=== PATIENT | female | born 1980 | race Caucasian/White ===

== ENCOUNTER 2019-10-02 15:59 | Outpatient (CLI) | payer BC, SELFPAY ==
--- NOTE | ~2019-10-02 | XR_ITS ---
EXAMINATION: XR ankle RT min 3V EXAM DATE: 10/02/2019 16:20 INDICATION: Right ankle pain and swelling. Injury, initial encounter. TECHNIQUE: Right ankle frontal, lateral and oblique projections obtained and reviewed. There is no p rior study for comparison. FINDINGS: The right ankle mortise appears intact. There are no acute fractures or dislocations iden tified. There is no subcutaneous gas. There is soft tissue swelling over the ankle. There are no ra diopaque foreign bodies. IMPRESSION: 1. XR ankle RT min 3V exam without acute osseous findings. 2. Soft tissue swelling. Reviewed, dictated and finalized at location A.
== END 2019-10-02 16:00 | disposition home or self-care (01) ==
LOC: CHSIMG 16:01
PROVIDERS: PCP Nurse Practitioner Family; Visit Provider Nurse Practitioner Family
DX: M25.571 Pain in right ankle and joints of right foot (principal)
CPT/HCPCS: 73610

== ENCOUNTER 2020-04-21 13:36 | Outpatient (CLI) | payer BC, SELFPAY ==
[2020-04-21 14:20] LABS: Basophils Absolute Auto 0.06 K/mm3 (0.00-0.10); Basophils Percent Auto 0.4 % (0.0-1.0); Eosinophils Absolute Auto 0.08 K/mm3 (0.02-0.50); Eosinophils Percent Auto 0.5 % (1.0-6.0); Hematocrit 36.9 % (35.0-49.0); Hemoglobin 11.9 g/dL (12.0-15.0); Immature Granulocyte Absolute 0.09 K/mm3 (0.00-0.00); Immature Granulocyte Percent A 0.6 % (0.0-0.0); Lymphocytes Absolute Auto 3.67 K/mm3 (1.10-4.50); Lymphocytes Percent Auto 23.4 % (18.0-42.0); Mean Corpuscular HGB Conc 32.2 g/dL (32.0-36.0); Mean Corpuscular Hemoglobin 27.5 pg (27.0-31.0); Mean Corpuscular Volume 85.2 fL (78.0-102.0); Mean Platelet Volume 10.2 fl (9.2-11.8); Monocytes Absolute Auto 1.21 K/mm3 (0.10-0.90); Monocytes Percent Auto 7.7 % (2.0-11.0); Neutrophils Absolute Auto 10.6 K/mm3 (1.7-7.2); Neutrophils Percent Auto 67.4 % (50.0-70.0); Platelet Count Result 474 K/mm3 (150-420); Red Blood Count 4.33 M/mm3 (4.20-5.40); Red Cell Distribution Width 18.3 % (11.6-14.4); White Blood Count 15.7 K/mm3 (4.8-10.8)
== END 2020-04-21 13:37 | disposition home or self-care (01) ==
LOC: CHSLAB 13:41
PROVIDERS: PCP Nurse Practitioner Family
DX: Z13.0 Encounter for screening for diseases of the blood and blood-forming organs and certain disorders involving the immune mechanism (principal)
CPT/HCPCS: 36415; 85025

== ENCOUNTER 2021-12-12 08:32 | Emergency (ER) | payer BC, SELFPAY ==
--- NOTE | ~2021-12-12 | US_ITS ---
EXAMINATION: US pelvic complete DATE: 12/12/2021 13:09 INDICATION: Pelvic pain. Irregular bleeding. Comparison:No prior studies for comparison. TECHNIQUE: Multiple transabdominal sonographic images of the pelvis performed. FINDINGS: The uterus measures 15.8 x 10.8 x 8.7 cm. There is a complex heterogeneous mass of the uter us measuring 10.3 x 10.8 x 9.2 cm with internal vascularity. The endometrium is not visualized. The right ovary measures 2 x 2.1 x 1.7 cm and the left ovary is not definitely identified. There is no free fluid in the pelvis. There are no abnormal masses seen on either side. IMPRESSION: 1. Enlarged uterus containing a complex 10.8 cm heterogeneous vascular mass. This may represent a fib roid, although sarcomatous degeneration is not excluded. Recommend surgical consultation. Reviewed, dictated and finalized at location A. IMPRESSION: 1. Enlarged uterus containing a complex 10.8 cm heterogeneous vascular mass. Th is may represent a fibroid, although sarcomatous degeneration is not excluded. Recommend surgical consultation.
--- NOTE | ~2021-12-12 | CT_ITS ---
EXAMINATION: CT abdomen pelvis wo con DATE: 12/12/2021 11:33 INDICATION: Right lower quadrant pain for one week. Covid 19. TECHNIQUE: Computed tomography (CT) of the abdomen and pelvis was performed without intravenous contr ast. The dose-length product was 1088.05 mGy-cm. Automated exposure control and iterative reconstruct ion technique were employed. COMPARISON: None. FINDINGS: There is a 5 mm left lower lobe nodule. Heart size is normal. No significant pleural or per icardial effusion. There is a low-density mass in the left adrenal gland measuring 3.5 x 3.1 cm with density measurement of negative Hounsfield units which may represent adrenal adenoma or myolipoma. Th ere is cholecystectomy clips. The liver, spleen, pancreas, right adrenal gland and kidneys are unrema rkable. Nonobstructive bowel gas pattern. There is a fat-containing umbilical hernia. There are clips in the pelvis consistent with tubal ligation. There is a large mass in the pelvis, likely a large fi broid uterus. The The appendix is not positively visualized. There is no pericecal inflammatory green ge to suggest appendicitis. No free air or free fluid. No acute osseous abnormality. IMPRESSION: 1. Large homogeneous mass in the pelvis, likely enlarged fibroid uterus. Consider correlation with pe lvic ultrasound. 2: Left lower lobe nodule measuring 5 mm. Follow-up low dose CT chest in 12 months recommended. 3: Low-density left adrenal mass measuring 3.5 cm, likely benign adenoma or myolipoma. Reviewed, dictated and finalized at location A. IMPRESSION: 1. Large homogeneous mass in the pelvis, likely enlarged fibroid uterus. Consid er correlation with pelvic ultrasound. 2: Left lower lobe nodule measuring 5 mm. Follow-up low dose CT chest in 12 mo nths recommended. 3: Low-density left adrenal mass measuring 3.5 cm, likely benign adenoma or juan daniel lipoma.
[2021-12-12 09:50] VITALS: BP 143/84; PULSE 84; RESP 20; TEMP 36.6; O2SAT 99
[2021-12-12 10:33] LABS: Basophils Absolute Auto 0.04 K/mm3 (0.00-0.10); Basophils Percent Auto 0.5 % (0.0-1.0); Eosinophils Absolute Auto 0.04 K/mm3 (0.02-0.50); Eosinophils Percent Auto 0.5 % (1.0-6.0); Hematocrit 32.3 % (35.0-49.0); Immature Granulocyte Absolute 0.05 K/mm3 (0.00-0.00); Immature Granulocyte Percent A 0.6 % (0.0-0.0); Lymphocytes Absolute Auto 0.87 K/mm3 (1.10-4.50); Lymphocytes Percent Auto 10.7 % (18.0-42.0); Mean Corpuscular Hemoglobin 24.7 pg (27.0-31.0); Mean Corpuscular Volume 79.8 fL (78.0-102.0); Monocytes Absolute Auto 0.65 K/mm3 (0.10-0.90); Neutrophils Absolute Auto 6.5 K/mm3 (1.7-7.2); Neutrophils Percent Auto 79.7 % (50.0-70.0); Platelet Count Result 448 K/mm3 (150-420); Red Blood Count 4.05 M/mm3 (4.20-5.40); Red Cell Distribution Width 16.8 % (11.6-14.4); White Blood Count 8.1 K/mm3 (4.8-10.8)
[2021-12-12] MEDS: ONDANSETRON INJ 4 MG/2 ML VIAL IV PUSH (10:33)
[2021-12-12] MEDS: PANTOPRAZOLE SODIUM IV 40 MG VIAL IV PUSH (10:33)
[2021-12-12] MEDS: KETOROLAC 30 MG/ML VIAL (*BKC) IM (10:34)
[2021-12-12 10:35] LABS: Add Urine Microscopic? YES; Appearance Urine Slightly Cloudy (Clear); Bilirubin Urine Negative (Negative); Blood Urine 2+ (Negative); Color Urine Yellow (Yellow); Glucose Urine UA Negative (Negative); Ketones Urine Negative (Negative); Leukocyte Esterase Ur Negative (Negative); Nitrate Urine Negative (Negative); Protein Urine Negative (Negative); Specific Grav Ur >= 1.030 (1.010-1.020); Urobilinogen Urine 0.2 mg/dL (0.2-1.0); pH Urine 5.5 (5.0-8.0)
[2021-12-12] MEDS: SODIUM CHLORIDE 0.9% IV 500 ML 999 ML IV CONT (10:35)
[2021-12-12 10:44] LABS: Bacteria Urine 2+ /hpf; SPREG INTERNAL CONTROL Positive; Serum Qual hCG Negative; Squamous Epithelial Cell Urine Moderate /hpf (Few); WBC Urine None seen /hpf (0-3)
[2021-12-12 10:46] LABS: Alanine Aminotransferase 16 U/L (14-59); Albumin Level 3.1 g/dL (3.4-5.0); Alkaline Phosphatase 89 U/L (46-116); Anion Gap 8 mmol/L (8-16); Aspartate Amino Transferase 14 U/L (15-37); Bilirubin,Total 0.2 mg/dL (0.00-1.00); Blood Urea Nitrogen 8 mg/dL (7-18); Calcium 8.6 mg/dL (8.5-10.1); Carbon Dioxide 26 mmol/L (21-32); Chloride 101 mmol/L (98-108); Estimated Glomerular Filt Rate > 60; Glucose 90 mg/dL (70-99); Lipase 63 U/L (73-393); Osmolality Calculated 278 mOsm/kg (285-295); Sodium 135 mmol/L (136-145); Total Protein 6.9 g/dL (6.4-8.2)
[2021-12-12 11:05] LABS: SARS-CoV-2 RNA PCR Positive (Negative)
--- NOTE | 2021-12-12 11:22 | ED.ABDPAIN ---
HPI - Abdominal Pain General Chief Complaint: Abdominal Pain Stated Complaint: Female issuses /covid positive at home test Time Seen by Provider: 12/12/21 08:36 Source: patient and RN notes reviewed Mode of arrival: ambulatory Limitations: no limitations History of Present Illness MD elicited complaint: abdominal pain (RLQ abdominal pain x 1 week) Pertinent past history: none Onset (ago): week(s) (1) Pain Consistency: constant Location: RLQ Severity: mild Pain scale (0-10): 6 Quality: aching and dull Radiation: back Migration to: no migration Exacerbating factors: nothing Relieving factors: nothing Associated symptoms: nausea Related Data Patient : No Home Medications Medication Instructions Recorded Confirmed alprazolam 0.5 mg tablet 0.5 mg PO Q4-6H PRN Anxiety 04/27/19 12/12/21 amitriptyline 50 mg tablet 50 mg PO DAILY 04/27/19 12/12/21 fluoxetine 20 mg capsule 20 mg PO DAILY 04/27/19 12/12/21 naloxone 4 mg/actuation nasal 1 spray intranasal PRN PRN Opioid 04/27/19 12/12/21 spray (Narcan) Overdose propranolol 10 mg tablet 10 mg PO DAILY 04/27/19 12/12/21 quetiapine 300 mg tablet 300 mg PO HS 04/27/19 12/12/21 Allergies Allergy/AdvReac Type Severity Reaction Status Date / Time No Known Allergies Allergy Verified 04/27/19 18:18 Review of Systems Review of Systems: All systems reviewed & are unremarkable except as noted in HPI and below Constitutional: Constitutional: Reports no additional constitutional complaints Eyes: Eyes: Reports no additional eye complaints ENT: Reports system reviewed and no additional complaints, except as documented Cardiovascular: Cardiovascular: Reports no additional cardiovascular complaints Respiratory: Respiratory: Reports no additional respiratory complaints Gastrointestinal: Gastrointestinal: Reports no additional gastrointestinal complaints Genitourinary: Genitourinary: Reports no additional female genitourinary complaints Musculoskeletal: Musculoskeletal: Reports no additional musculoskeletal complaints Integumentary/Breasts: Skin/Breast: Reports system reviewed and no additional complaints, except as docu Neurologic: Reports system reviewed and no additional complaints, except as documented Psychiatric: Psychiatric: Reports no additional psychiatric complaints Endocrine: Endocrine: Reports no additional endocrine complaints Hematologic/Lymphatic: Hematologic/Lymphatic: Reports no additional hematologic/lymphatic complaints Allergic/Immunologic: Allergic/Immunologic: Reports no additional allergic/immunologic complaints PMFSH Past Medical History Medical History (Updated 12/12/21 @ 13:45 by Dawit Parker MD) Abdominal pain Anxiety Insomnia UTI (urinary tract infection) Exam Const: General: healthy appearing and no acute distress Nutritional Appearance: well nourished Orientation/consciousness: patient oriented x3 Limitations: no limitations HENMT: Head: normal to inspection Ears: external ears normal, TM's normal bilaterally and EAC's normal General nose exam: Normal external nose present and Normal nares present Face and sinus: normal facial exam and sinuses nontender Mouth: Yes Normal oral and palatal mucosa present and Yes moist mucous membranes Teeth and gingiva: dentition normal Throat: posterior oropharynx normal Eyes: Conjunctivae: conjunctivae normal Pupils: Equal, round and reactive pupils present EOM: EOMs intact bilaterally Neck: Neck: normal visual inspection, no lymphadenopathy and no meningeal signs Chest: Chest palpation & inspection: normal inspection of the chest Resp: Effort & Inspection: normal respiratory effort Auscultation: clear to auscultation bilaterally Cardio: Rate: regular rate Rhythm: regular rhythm GI: GI Palp: Yes Soft to palpation and Yes Tenderness to palpation present (GI) (minimally tender RLQ and suprapubic abdomen) : General: Yes bladder normal to palpation and Yes no CVA tendernes
[2021-12-12 12:18] VITALS: BP 132/72; PULSE 74; RESP 20; O2SAT 99
--- NOTE | 2021-12-12 12:35 | PC.NURSE ---
ultrasound staff in with pt.
[2021-12-12 13:09] VITALS: BP 136/76; PULSE 72; RESP 20; O2SAT 99
[2021-12-12] MEDS: traMADol HCL (*CRX) 50 MG TABLET PO (13:38)
[2021-12-12 13:55] VITALS: BP 135/85; PULSE 74; RESP 20; TEMP 36.6; O2SAT 97
== END 2021-12-12 14:00 | disposition home or self-care (01) ==
PROVIDERS: Emergency Provider Emergency Medicine; PCP Nurse Practitioner Family
DX: N39.0 Urinary tract infection, site not specified (principal); D25.9 Leiomyoma of uterus, unspecified; U07.1 COVID-19
CPT/HCPCS: 36415; 74176; 76856; 80053; 81001; 83690; 84703; 85025; 96361; 96365; 96372; 96375; 99284; A9270; C9113; C9803; J0696; J1885; J2405; J7040; U0003; U0005

== ENCOUNTER 2021-12-13 04:02 | Emergency (ER) | payer BC, SELFPAY ==
--- NOTE | ~2021-12-13 | CT_ITS ---
EXAMINATION: CT abdomen pelvis wo con DATE: 12/13/2021 05:38 INDICATION: Lower abdominal pain. Bloating. Uterine fibroid. TECHNIQUE: Computed tomography (CT) of the abdomen and pelvis was performed without intravenous contr ast. The dose-length product was 1254.65 mGy-cm. COMPARISON: 12/12/2021 FINDINGS: Mild atelectasis at the lung bases. Heart size is normal. No pericardial or pleural effusion. Cholecy stectomy clips the gallbladder fossa. Liver, spleen, pancreas and right adrenal gland are normal. 3.4 cm low density left adrenal mass most likely an adenoma although differential would include myelolip betzaida. Kidneys and ureters are normal with no urolithiasis, hydroureteronephrosis or perinephric/ureter al stranding. Appendix is not visualized and there are surgical clips at the cecum suggesting prior a ppendectomy with no adjacent inflammation presenting to suggest acute appendicitis. There are few sig moid diverticula without adjacent from 3 change to suggest diverticulitis. No bowel obstruction. Mass like enlargement of the uterine fundus consistent with a large fibroid. Likely tubal ligation clips a long the bilateral broad ligaments. Bilateral adnexa are otherwise unremarkable. Bladder is normal. N o free intraperitoneal gas or fluid. No pathologically enlarged abdominal or pelvic lymphadenopathy. Mild lower thoracic spondylosis. IMPRESSION: 1. No acute intra-abdominal/pelvic process. 2. Likely fibroid uterus. Reviewed, dictated and finalized at location A.
[2021-12-13 04:22] VITALS: BP 131/73; PULSE 81; RESP 17; TEMP 36.8; O2SAT 99
[2021-12-13] MEDS: MORPHINE SULFATE (*CRX) 4 MG/ML INJ IM (04:53)
[2021-12-13] MEDS: ONDANSETRON HCL ODT 4 MG TABLET PO (04:54)
[2021-12-13 05:22] LABS: Basophils Absolute Auto 0.04 K/mm3 (0.00-0.10); Basophils Percent Auto 0.4 % (0.0-1.0); Eosinophils Absolute Auto 0.04 K/mm3 (0.02-0.50); Eosinophils Percent Auto 0.4 % (1.0-6.0); Hematocrit 28.9 % (35.0-49.0); Hemoglobin 9.2 g/dL (12.0-15.0); Immature Granulocyte Absolute 0.05 K/mm3 (0.00-0.00); Immature Granulocyte Percent A 0.5 % (0.0-0.0); Lymphocytes Absolute Auto 0.63 K/mm3 (1.10-4.50); Lymphocytes Percent Auto 5.9 % (18.0-42.0); Mean Corpuscular HGB Conc 31.8 g/dL (32.0-36.0); Mean Corpuscular Hemoglobin 25.7 pg (27.0-31.0); Mean Corpuscular Volume 80.7 fL (78.0-102.0); Mean Platelet Volume 9.7 fl (9.2-11.8); Monocytes Absolute Auto 0.66 K/mm3 (0.10-0.90); Monocytes Percent Auto 6.2 % (2.0-11.0); Neutrophils Absolute Auto 9.2 K/mm3 (1.7-7.2); Neutrophils Percent Auto 86.6 % (50.0-70.0); Platelet Count Result 379 K/mm3 (150-420); Red Blood Count 3.58 M/mm3 (4.20-5.40); Red Cell Distribution Width 17.2 % (11.6-14.4); White Blood Count 10.6 K/mm3 (4.8-10.8)
[2021-12-13 05:42] LABS: Alanine Aminotransferase 13 U/L (14-59); Albumin Level 2.7 g/dL (3.4-5.0); Alkaline Phosphatase 82 U/L (46-116); Anion Gap 7 mmol/L (8-16); Aspartate Amino Transferase 15 U/L (15-37); Bilirubin,Total 0.1 mg/dL (0.00-1.00); Blood Urea Nitrogen 10 mg/dL (7-18); Calcium 8.4 mg/dL (8.5-10.1); Carbon Dioxide 25 mmol/L (21-32); Chloride 105 mmol/L (98-108); Estimated CRCL calculation 90 ml/min; Estimated Glomerular Filt Rate > 60; Glucose 116 mg/dL (70-99); Lipase 81 U/L (73-393); Osmolality Calculated 284 mOsm/kg (285-295); Potassium 4.1 mmol/L (3.5-5.1); Sodium 137 mmol/L (136-145); Total Protein 6.2 g/dL (6.4-8.2)
--- NOTE | 2021-12-13 07:45 | ED.ABDPAIN ---
HPI - Abdominal Pain General Chief Complaint: Abdominal Pain Stated Complaint: ABD PAIN Time Seen by Provider: 12/13/21 04:06 Source: patient and RN notes reviewed Mode of arrival: ambulatory Limitations: no limitations History of Present Illness MD elicited complaint: abdominal pain (recurrent worse than when seen in this ED 12-16 hrs ago. Fibroid uterus and UTI were diagnosed/treated.) Pertinent past history: past UTI Onset (ago): hour(s) (2) Pain Consistency: constant Location: RLQ and suprapubic Severity: moderate Pain scale (0-10): 8 Quality: cramping, aching and fullness Exacerbating factors: nothing Relieving factors: medication Related Data Home Medications Medication Instructions Recorded Confirmed alprazolam 0.5 mg tablet 0.5 mg PO Q4-6H PRN Anxiety 04/27/19 12/13/21 amitriptyline 50 mg tablet 50 mg PO DAILY 04/27/19 12/13/21 fluoxetine 20 mg capsule 20 mg PO DAILY 04/27/19 12/13/21 naloxone 4 mg/actuation nasal 1 spray intranasal PRN PRN Opioid 04/27/19 12/13/21 spray (Narcan) Overdose propranolol 10 mg tablet 10 mg PO DAILY 04/27/19 12/13/21 quetiapine 300 mg tablet 300 mg PO HS 04/27/19 12/13/21 Allergies Allergy/AdvReac Type Severity Reaction Status Date / Time No Known Allergies Allergy Verified 04/27/19 18:18 Review of Systems Review of Systems: All systems reviewed & are unremarkable except as noted in HPI and below Constitutional: Constitutional: Reports no additional constitutional complaints Eyes: Eyes: Reports no additional eye complaints ENT: Reports system reviewed and no additional complaints, except as documented Cardiovascular: Cardiovascular: Reports no additional cardiovascular complaints Respiratory: Respiratory: Reports no additional respiratory complaints Gastrointestinal: Gastrointestinal: Reports no additional gastrointestinal complaints Genitourinary: Genitourinary: Reports no additional female genitourinary complaints Musculoskeletal: Musculoskeletal: Reports no additional musculoskeletal complaints Integumentary/Breasts: Skin/Breast: Reports system reviewed and no additional complaints, except as docu Neurologic: Reports system reviewed and no additional complaints, except as documented Psychiatric: Psychiatric: Reports no additional psychiatric complaints Endocrine: Endocrine: Reports no additional endocrine complaints Hematologic/Lymphatic: Hematologic/Lymphatic: Reports no additional hematologic/lymphatic complaints Allergic/Immunologic: Allergic/Immunologic: Reports no additional allergic/immunologic complaints PMFSH Past Medical History Medical History Abdominal pain Anxiety Insomnia UTI (urinary tract infection) Exam Const: General: healthy appearing and no acute distress Nutritional Appearance: well nourished Orientation/consciousness: patient oriented x3 Limitations: no limitations HENMT: Head: normal to inspection Ears: external ears normal, TM's normal bilaterally and EAC's normal General nose exam: Normal external nose present and Normal nares present Face and sinus: normal facial exam and sinuses nontender Mouth: Yes Normal oral and palatal mucosa present and Yes moist mucous membranes Teeth and gingiva: dentition normal Throat: posterior oropharynx normal Eyes: Conjunctivae: conjunctivae normal Pupils: Equal, round and reactive pupils present EOM: EOMs intact bilaterally Neck: Neck: normal visual inspection, no lymphadenopathy and no meningeal signs Chest: Chest palpation & inspection: normal inspection of the chest Resp: Effort & Inspection: normal respiratory effort Auscultation: clear to auscultation bilaterally Cardio: Rate: regular rate Rhythm: regular rhythm GI: GI Palp: Yes Soft to palpation and No Tenderness to palpation present (GI) Auscultation: normal bowel sounds : General: Yes bladder normal to palpation and Yes no CVA tenderness Bimanual exam- vagina
[2021-12-13 09:12] VITALS: BP 130/77; PULSE 81; RESP 20; TEMP 36.3; O2SAT 98
== END 2021-12-13 09:14 | disposition home or self-care (01) ==
PROVIDERS: Emergency Provider Emergency Medicine; PCP Nurse Practitioner Family
DX: R10.9 Unspecified abdominal pain (principal); N39.0 Urinary tract infection, site not specified; D25.9 Leiomyoma of uterus, unspecified
CPT/HCPCS: 36415; 74176; 80053; 83690; 85025; 96372; 99284; A9270; J2270

== ENCOUNTER 2022-02-03 17:57 | Emergency (ER) | payer BC, SELFPAY ==
[2022-02-03 18:09] VITALS: BP 218/114; PULSE 93; RESP 16; TEMP 36.5; O2SAT 100
--- NOTE | 2022-02-03 18:28 | ED.DENTAL ---
HPI - Dental/Oral General Chief complaint: Dental/Oral Stated complaint: right back tooth pain Time Seen by Provider: 02/03/22 17:59 Source: patient and RN notes reviewed Mode of arrival: ambulatory Limitations: no limitations History of Present Illness Complaint: tooth pain Onset (ago): day(s) (2) Duration: constant Severity: mild Severity scale (1-10): 4 Relieving factors: nothing Exacerbating factors: chewing Context: history of dental caries Treatment prior to arrival: none Related Data Home Medications Medication Instructions Recorded Confirmed alprazolam 0.5 mg tablet 0.5 mg PO Q4-6H PRN Anxiety 04/27/19 02/03/22 amitriptyline 50 mg tablet 50 mg PO DAILY 04/27/19 02/03/22 fluoxetine 20 mg capsule 20 mg PO DAILY 04/27/19 02/03/22 naloxone 4 mg/actuation nasal 1 spray intranasal PRN PRN Opioid 04/27/19 02/03/22 spray (Narcan) Overdose propranolol 10 mg tablet 10 mg PO DAILY 04/27/19 02/03/22 quetiapine 300 mg tablet 300 mg PO HS 04/27/19 02/03/22 Allergies Allergy/AdvReac Type Severity Reaction Status Date / Time No Known Allergies Allergy Verified 02/03/22 18:18 Review of Systems Review of Systems: All systems reviewed & are unremarkable except as noted in HPI and below Constitutional: Constitutional: Reports no additional constitutional complaints Eyes: Eyes: Reports no additional eye complaints ENT: Reports system reviewed and no additional complaints, except as documented Comments: dental pain Cardiovascular: Cardiovascular: Reports no additional cardiovascular complaints Respiratory: Respiratory: Reports no additional respiratory complaints Gastrointestinal: Gastrointestinal: Reports no additional gastrointestinal complaints Genitourinary: Genitourinary: Reports no additional female genitourinary complaints Musculoskeletal: Musculoskeletal: Reports no additional musculoskeletal complaints Integumentary/Breasts: Skin/Breast: Reports system reviewed and no additional complaints, except as docu Neurologic: Reports system reviewed and no additional complaints, except as documented Psychiatric: Psychiatric: Reports no additional psychiatric complaints Endocrine: Endocrine: Reports no additional endocrine complaints Hematologic/Lymphatic: Hematologic/Lymphatic: Reports no additional hematologic/lymphatic complaints Allergic/Immunologic: Allergic/Immunologic: Reports no additional allergic/immunologic complaints PMFSH Past Medical History Medical History (Updated 02/13/22 @ 08:58 by Dawit Parker MD) Abdominal pain Anxiety Insomnia Toothache UTI (urinary tract infection) Exam Const: General: healthy appearing and no acute distress Nutritional Appearance: well nourished Orientation/consciousness: patient oriented x3 Limitations: no limitations HENMT: Head: normal to inspection Ears: external ears normal, TM's normal bilaterally and EAC's normal General nose exam: Normal external nose present and Normal nares present Face and sinus: normal facial exam and sinuses nontender Mouth: Yes Normal oral and palatal mucosa present and Yes moist mucous membranes Teeth and gingiva: abnormal tooth and associated gingiva (right upper molar minimally tender. scattered dental caries.) Throat: posterior oropharynx normal Eyes: Conjunctivae: conjunctivae normal Pupils: Equal, round and reactive pupils present EOM: EOMs intact bilaterally Neck: Neck: normal visual inspection, no lymphadenopathy and no meningeal signs Chest: Chest palpation & inspection: normal inspection of the chest Resp: Effort & Inspection: normal respiratory effort Auscultation: clear to auscultation bilaterally Cardio: Rate: regular rate Rhythm: regular rhythm GI: GI Palp: Yes Soft to palpation and No Tenderness to palpation present (GI) Auscultation: normal bowel sounds : General: Yes bladder normal to palpation and Yes no CVA tenderness Bimanual exam- vagina & uterus: bladder normal to palpation B
[2022-02-03] MEDS: KETOROLAC (*BKC) 60 MG/2 ML VIAL IM (18:37)
[2022-02-03] MEDS: cloNIDine HCL 0.2 MG TABLET PO (18:37)
[2022-02-03 18:44] VITALS: BP 203/103; PULSE 77; RESP 17; TEMP 36.5; O2SAT 96
== END 2022-02-03 18:46 | disposition home or self-care (01) ==
PROVIDERS: Emergency Provider Emergency Medicine; PCP Nurse Practitioner Family
DX: K04.7 Periapical abscess without sinus (principal); I10 Essential (primary) hypertension
CPT/HCPCS: 96372; 99283; A9270; J1885

== ENCOUNTER 2024-08-25 10:46 | Emergency (ER) | payer BC, SELFPAY ==
[2024-08-25] VITALS (7 sets, daily range): BP systolic 119–153; BP diastolic 70–77; PULSE 70–94; RESP 18; TEMP 36.2; O2SAT 94–96
--- NOTE | ~2024-08-25 | XR_ITS ---
Clinical Indication: Cough PA and lateral views of the chest: Comparison: 04/27/2019 Findings: Possible mild central congestive change, without evidence of focal consolidation or pleural effusion. Cardiomediastinal silhouette is within normal limits. Bones and soft tissues are unremark able. Impression: Possible mild central congestive change. Reviewed, dictated and finalized at location . Impression: Possible mild central congestive change.
--- NOTE | ~2024-08-25 | CT_ITS ---
Clinical Indication: Shortness of breath CT Scan of the Chest with Contrast: Technique: Contiguous sections were acquired throughout the chest after intravenous administration of 190 cc of Omnipaque 350. Dose reduction technique was used on this scan by utilizing automated expos ure control and iterative reconstruction technique. The dose-length product (DLP) was 1951.30 mGy-cm. Findings: There is bilateral hilar and probable subcarinal lymphadenopathy. No axillary lymphadenopathy. No def inite large filling defect seen in central pulmonary arteries to suggest central pulmonary embolus, b ut evaluation for pulmonary embolus is suboptimal due to timing of the contrast bolus.. There is no e vidence of aortic dissection or aneurysm. There is no evidence of pleural or pericardial effusion. Probable areas of mild groundglass opacity scattered throughout the lungs, suggestive of mild pulmona ry edema or possibly bronchitis. 4 mm left lower lobe pulmonary nodule present (axial image 80). Images through the upper abdomen reveal no abnormalities. Impression: Limited evaluation for pulmonary embolus, but no large central pulmonary embolus seen. Extensive regional areas of groundglass opacity lungs. Correlate for mild pulmonary edema versus poss ibly bronchiolitis or atypical infection/hypersensitivity pneumonitis. Bilateral hilar and subcarinal lymphadenopathy. Correlate for reactive/inflammatory nodes, including possibility of sarcoid. Lymphoma the metastatic disease felt to be less likely, though not definitive ly excluded. Reviewed, dictated and finalized at [facility]. Impression: Limited evaluation for pulmonary embolus, but no large central pulmonary embolu s seen. Extensive regional areas of groundglass opacity lungs. Correlate for mild pulmo nary edema versus possibly bronchiolitis or atypical infection/hypersensitivity pneumonitis. Bilateral hilar and subcarinal lymphadenopathy. Correlate for reactive/inflamma tory nodes, including possibility of sarcoid. Lymphoma the metastatic disease f elt to be less likely, though not definitively excluded.
--- NOTE | 2024-08-25 10:56 | ED_ITS ---
HPI - SOB/Dyspnea General Chief Complaint: Shortness of Breath/Dyspnea Stated Complaint: shortness of breath Time Seen by Provider: 08/25/24 10:53 Source: patient Mode of arrival: ambulatory Limitations: no limitations History of Present Illness HPI Narrative: Patient is a 44-year-old female with some shortness of breath over the past week to week and a half. She has some discomfort when she takes a breath in the bilateral lower lung kapadia /upper abdomen. No definite abdominal pain. No nausea vomiting or diarrhea. A week ago she had a GI gastroenteritis. She has been having a fever of 101 at times in the evening. No syncope. No chest pain. MD elicited complaint: shortness of breath Pertinent past history: COPD ( Tobacco 1 pack per day) Onset (ago): week(s) ( 1-2) Context: recent illness and other ( patient has progressively worsening shortness of breath and some lower lung field pain with breathing over the past 1-2 weeks with fever) Timing: constant and progressively worsening Severity: moderate Exacerbating factors: exertion Relieving factors: rest Known history of: COPD Associated symptoms: sputum production ( scant and normal color without blood) Treatment prior to arrival: none Related Data Home oxygen amount: none Home Medications ?Medication ?Instructions ?Recorded ?Confirmed ?Last Taken ?Type alprazolam 0.5 mg tablet 0.5 mg PO Q4-6H PRN Anxiety 04/27/19 02/03/22 Unknown History amitriptyline 50 mg tablet 50 mg PO DAILY 04/27/19 02/03/22 Unknown History fluoxetine 20 mg capsule 20 mg PO DAILY 04/27/19 02/03/22 Unknown History naloxone 4 mg/actuation nasal 1 spray intranasal PRN PRN Opioid 04/27/19 02/03/22 Unknown History spray (Narcan) Overdose propranolol 10 mg tablet 10 mg PO DAILY 04/27/19 02/03/22 Unknown History quetiapine 300 mg tablet 300 mg PO HS 04/27/19 02/03/22 Unknown History Allergies Allergy/AdvReac Type Severity Reaction Status Date / Time No Known Allergies Allergy Verified 02/03/22 18:18 Review of Systems 2 Review of Systems: All systems reviewed & are unremarkable except as noted in HPI and below Constitutional: Constitutional: Reports no additional constitutional complaints Eyes: Eyes: Reports no additional eye complaints ENT: Reports system reviewed and no additional complaints, except as documented Cardiovascular: Cardiovascular: Reports no additional cardiovascular complaints Respiratory: Respiratory: Reports no additional respiratory complaints Gastrointestinal: Gastrointestinal: Reports no additional gastrointestinal complaints Genitourinary: Genitourinary: Reports no additional female genitourinary complaints Musculoskeletal: Musculoskeletal: Reports no additional musculoskeletal complaints Integumentary/Breasts: Skin/Breast: Reports system reviewed and no additional complaints, except as docu Neurologic: Reports system reviewed and no additional complaints, except as documented Psychiatric: Psychiatric: Reports no additional psychiatric complaints Endocrine: Endocrine: Reports no additional endocrine complaints Hematologic/Lymphatic: Hematologic/Lymphatic: Reports no additional hematologic/lymphatic complaints Allergic/Immunologic: Allergic/Immunologic: Reports no additional allergic/immunologic complaints PMFSH Past Medical History Medical History Toothache UTI (urinary tract infection) Abdominal pain Anxiety Insomnia Exam 2 Const: General: healthy appearing Nutritional Appearance: well nourished Orientation/consciousness: patient oriented x3 HENMT: Head: normal to inspection Ears: external ears normal F karyn/Nose/Sinus: Normal external nose present Eyes: Conjunctivae: conjunctivae normal Pupils: Equal, round and reactive pupils present EOM: EOMs intact bilaterally Neck: Neck: normal visual inspection Chest: Chest palpation & inspection: normal inspection of the chest Resp: Effort & Inspection: normal respiratory effort and not labored A uscultation: clear to auscultation bilaterally, no crackles and rhonchi ( faintly in the bases) Cardio: Rate: regular rate Rhythm: regular rhythm Heart sounds: no murmurs GI: Inspection: non-distended GI Palp: Yes Soft to palpation, No Tenderness to palpation present (GI), No Guarding due to palpation present (GI), No Rigid due to palpation, No Hernia present, No Palpable mass present and No Rebound tenderness present Auscultation: normal bowel sounds : General: Yes bladder normal to palpation Back/Spine/Pelvis: Back: no CVA tenderness Skin: General skin exam: normal color Rashes: no rashes Wounds: no wounds Neuro: General: patient oriented x3 Cranial nerves: Yes Nystagmus not present Speech: normal speech Gait exam (Neuro): Normal gait present Extrem: General: normal to inspection Psych: Mental Status: mental status grossly normal Affect: normal affect Attitude: cooperative Course Vital Signs Vital signs: Vital Signs Temperature 36.2 C L 08/25/24 10:46 Pulse Rate 94 08/25/24 10:46 Respiratory Rate 18 08/25/24 10:46 Blood Pressure 153/77 H 08/25/24 10:46 Pulse Oximetry 94 08/25/24 10:46 Oxygen Delivery Room Air 08/25/24 10:46 Temperature 36.2 C L 08/25/24 10:46 Pulse Rate 70 08/25/24 12:15 Respiratory Rate 18 08/25/24 10:46 Blood Pressure 128/70 08/25/24 12:31 Pulse Oximetry 95 08/25/24 12:31 Oxygen Delivery Room Air 08/25/24 11:01 MDM - SOB/Dyspnea MDM Narrative Medical decision making narrative: patient is a 44-year-old female with some shortness of breath over the past 1-2 weeks. We will start with a chest x-ray and proceed to further workup if that is negative or significant. Lab Data Attestation: I reviewed the patient's lab results. 08/25/24 11:43 08/25/24 11:43 Labs: Lab Results 08/25/24 08/25/24 Range/Units 10:56 11:43 WBC 14.8 H (4.8-10.8) K/mm3 RBC 3.85 L (4.20-5.40) M/mm3 Hgb 11.1 L (12.0-15.0) g/dL Hct 35.0 (35.0-49.0) % MCV 90.9 (78.0-102.0) fL MCH 28.8 (27.0-31.0) pg MCHC 31.7 L (32-36) g/dL RDW 15.4 H (11.6-14.4) % Plt Count 413 (150-420) K/mm3 MPV 8.8 L (9.2-11.8) fl Immature Gran % (Auto) 0.5 H (0.0-0.0) % Neut % (Auto) 73.9 H (50.0-70.0) % Lymph % (Auto) 19.8 (18.0-42.0) % Callaway % (Auto) 4.9 (2.0-11.0) % Eos % (Auto) 0.5 L (1.0-6.0) % Baso % (Auto) 0.4 (0.0-1.0) % Lymph # (Auto) 2.94 (1.10-4.50) K/mm3 Callaway # (Auto) 0.72 (0.10-0.90) K/mm3 Eos # (Auto) 0.08 (0.02-0.50) K/mm3 Baso # (Auto) 0.06 (0.00-0.10) K/mm3 Abs Immat Gran (auto) 0.08 H (0.00-0.00) K/mm3 Absolute Neuts (auto) 10.94 H (1.70-7.20) K/mm3 Absolute Nucleated RBC 0.00 (0.00-0.00) K/mm3 Nucleated RBC % 0.0 (0-0.0) % PT 10.7 (9.50-12.1) Seconds INR 1.0 APTT 29.4 (23.9-30.70) Sec D-Dimer 0.79 H* (0.19-0.50) mg/L Sodium 142 (136-145) mmol/L Potassium 4.0 (3.5-5.1) mmol/L Chloride 105 (98-108) mmol/L Carbon Dioxide 29 (21-32) mmol/L Anion Gap 8 (4-12) mmol/L BUN 9 (7-18) mg/dL Creatinine 0.69 (0.55-1.02) mg/dL Estim Creat Clear Calc Not Reportable Estimated GFR > 60 (59 - ) Glucose 103 H (70-99) mg/dL Calculated Osmolality 292 (285-295) mOsm/kg Lactic Acid 1.4 (0.4-2.0) mmol/L Calcium 8.8 (8.5-10.1) mg/dL Total Bilirubin 0.2 (0.00-1.00) mg/dL AST < 10 L (15-37) U/L ALT 14 (14-59) U/L Alkaline Phosphatase 102 (46-116) U/L Troponin I 12.1 (0.00-60.4) ng/L NT-Pro-B Natriuret Pep 173 H (0-125) pg/mL Total Protein 7.7 (6.4-8.2) g/dL Albumin 3.1 L (3.4-5.0) g/dL Lipase 27 (16-77) U/L Influenza A (RT-PCR) Negative (Negative) Influenza B (RT-PCR) Negative (Negative) RSV (RT-PCR) Negative (Negative) SARS-CoV-2 RNA (RT-PCR) Negative (Negative) Imaging Data Attestation: I personally reviewed and interpreted this imaging study as follows: Radiologist's impression: Chest x-ray shows Impression: Possible mild central congestive change. CTA of the chest shows Impression: Limited evaluation for pulmonary embolus, but no large central pulmonary embolus seen. Extensive regional areas of groundglass opacity lungs. Correlate for mild pulmonary edema versus possibly bronchiolitis or atypical infection/hypersensitivity pneumonitis. Bilateral hilar and subcarinal lymphadenopathy. Correlate for reactive/inflammatory nodes, including possibility of sarcoid. Lymphoma the metastatic disease felt to be less likely, though not definitively excluded. Discharge Plan Discharge Clinical Impression: Pneumonitis Pneumonia Qualifiers: Pneumonia type: due to unspecified organism Laterality: bilateral Lung location: unspecified part of lung Qualified Code(s): J18.9 - Pneumonia, unspecified organism Patient Disposition: Home, Self-Care Condition: Stable Instructions: Antibiotic Form, Bacterial Pneumonia (ED) Additional Instructions: please follow-up with the primary doctor in the next week. I suggest having a CT scan of the chest done with contrast as an outpatient after your illness for reassurance of the lungs. Patient Language: Tamazight Prescriptions: New albuterol sulfate [Ventolin HFA] 90 mcg/actuation HFA aerosol inhaler 2 inh inhalation QID PRN (Reason: shortness of breath or wheezing) Qty: 6.7 0RF levofloxacin 500 mg tablet 500 mg PO DAILY 7 Days Qty: 7 0RF methylprednisolone [Medrol (Yuval)] 4 mg tablets,dose pack See Rx Instructions .ROUTE .COMPLEX Qty: 21 0RF Rx Instructions: orally per package directions No Action quetiapine 300 mg tablet 300 mg PO HS amitriptyline 50 mg tablet 50 mg PO DAILY alprazolam 0.5 mg tablet 0.5 mg PO Q4-6H PRN (Reason: Anxiety) propranolol 10 mg tablet 10 mg PO DAILY fluoxetine 20 mg capsule 20 mg PO DAILY naloxone [Narcan] 4 mg/actuation spray,non-aerosol 1 spray INTRANASAL PRN PRN (Reason: Opioid Overdose) albuterol sulfate [ProAir HFA] 90 mcg/actuation HFA aerosol inhaler 1 puff INHALATION QID PRN (Reason: shortness of breath) Qty: 6.7 0RF sulfamethoxazole-trimethoprim [Bactrim DS] 800-160 mg tablet 1 tablet PO Q12H Qty: 20 0RF ibuprofen 800 mg tablet 800 mg PO TID Qty: 20 0RF omeprazole magnesium [Prilosec OTC] 20 mg tablet,delayed release (DR/EC) 20 mg PO BID Qty: 20 0RF ibuprofen 800 mg tablet 800 mg PO TID Qty: 20 0RF omeprazole 20 mg capsule,delayed release(DR/EC) 20 mg PO BID Qty: 20 0RF clonidine HCl 0.2 mg tablet 0.2 mg PO BID Qty: 10 0RF Follow-up/Referrals: UNKNOWN,DOCTOR [Non-Staff] - Time of Disposition: 13:55
--- NOTE | 2024-08-25 11:36 | ECG_ITS ---
Test Date: 2024-08-25 11:53:15 Measurements Intervals [place] Rate: 79 P: 69 MT: 160 QRS: 81 QRSD: 88 T: 62 QT: 396 QTc: 456 Interpretive Statements SINUS RHYTHM MINIMAL ST DEPRESSION [0.025+ mV ST DEPRESSION] No previous ECG available for comparison Electronically Signed On 08-25-2024 18:18:10 CDT by Gracie Mae M.D.
[2024-08-25 11:41] LABS: Influenza A QL RT-PCR Negative (Negative); Influenza B QL RT-PCR Negative (Negative); RSV RNA, RT-PCR Negative (Negative); SARS-CoV-2 RNA PCR Negative (Negative)
[2024-08-25 11:49] LABS: Basophils Absolute Auto 0.06 K/mm3 (0.00-0.10); Basophils Percent Auto 0.4 % (0.0-1.0); Eosinophils Absolute Auto 0.08 K/mm3 (0.02-0.50); Eosinophils Percent Auto 0.5 % (1.0-6.0); Hemoglobin 11.1 g/dL (12.0-15.0); Immature Granulocyte Absolute 0.08 K/mm3 (0.00-0.00); Immature Granulocyte Percent A 0.5 % (0.0-0.0); Lymphocytes Absolute Auto 2.94 K/mm3 (1.10-4.50); Lymphocytes Percent Auto 19.8 % (18.0-42.0); Mean Corpuscular HGB Conc 31.7 g/dL (32-36); Mean Corpuscular Hemoglobin 28.8 pg (27.0-31.0); Mean Corpuscular Volume 90.9 fL (78.0-102.0); Mean Platelet Volume 8.8 fl (9.2-11.8); Monocytes Absolute Auto 0.72 K/mm3 (0.10-0.90); Monocytes Percent Auto 4.9 % (2.0-11.0); Neutrophils Absolute Auto 10.94 K/mm3 (1.70-7.20); Neutrophils Percent Auto 73.9 % (50.0-70.0); Platelet Count Result 413 K/mm3 (150-420); Red Blood Count 3.85 M/mm3 (4.20-5.40); Red Cell Distribution Width 15.4 % (11.6-14.4); White Blood Count 14.8 K/mm3 (4.8-10.8)
[2024-08-25 12:03] LABS: Partial Thromboplastin Time 29.4 Sec (23.9-30.70); Prothrombin Time 10.7 Seconds (9.50-12.1)
--- OUTSIDE RECORDS SUMMARY | 2024-08-25 12:03 | XMS_ITS | Encounter Summary ---
Author Organization [facility] Address [facility] [place] [address] Care Team Providers Care Subeditor Name Role Phone Diana Villalobos NP Primary Care Provider [phone] Andreas Thomas MD Primary Care Provider [phone] Brina Lopez CONTROL ELECTRICIAN Unavailable [phone] Diana Villalobos NP Unavailable [phone] Encounter Details Date Type Department Care Team (Late st Contact Info) Description 03/09/2022 Hospital Follow-up Call [facility] [address] [place] [address] Kristi Urias RN Social History Tobacco Use Types Packs/Day Years Used Date Smoking Tobacco: Every Day Cigarettes Smokeless Tobacco: Never Alcohol Use Standard Drinks/Week Comments Not Currently 0 (1 standard drink = 0.6 oz pur e alcohol) Comments Unknown Sex and Gender Information Value Date Recorded Sex Assigned at Not on file Legal Sex Female 5:46 PM COMMUNICATION 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 No / Unsure 03/03/2022 5:41 AM CDT documented as of this encounter Functional Status * RETIRED Are you deaf or do you have serious difficulty hearing Answer Date of Assessment Author Status No 03/04/2022 11:00 AM CDT Acti ve * RETIRED Are you blind or do you have serious difficulty seeing, even when wearing glasses? Answer Date of Assessment Author Status No 03/04/2022 11:00 AM CDT Acti ve * Do you have serious difficulty walking or climbing stairs? Answer Date of Assessment Author Status No 03/04/2022 11:00 AM CDT Mariana Paulino, RN Active * Do you have difficulty dressing or bathing? Answer Date of Assessment Author Status No 03/04/2022 11:00 AM WESTT Mariana Paulino, RN Active * Because of a physical, mental, or emotional condition, do you have difficulty doing errands alone such as visiting a doctor's office or shopping? Answer Date of Assessment Author Status No 03/04/2022 11:00 AM WESTT Mariana Paulino, RN Active documented as of this encounter Mental Status * Because of a physical, mental, or emotional condition, do you have serious difficulty concentrating, remembering, or making decisions? Answer Entry Date Author Status No 03/04/2022 11:00 AM Mariana Eaton, RN Active documented in this encounter Plan of Treatment Not on file documented as of this encounter Goals Goal Patient Goal Type Associated Problems Recent Progress Patient-Stated? Author Patient will return to prior living situation and remain independent in ADLs upon discharge from hospital Lifestyle No 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 RN documented as of this encounter Visit Diagnoses Not on filedocumented in this encounter Care Teams Subeditor Relationship Specialty Start Date End Date Diana Villalobos NP [address] [phone] PCP - General NURSE PRACTITIONER 03/04/22 07/07/22 Andreas Thomas MD [address] [facility] [address] [place] [phone] PCP - General FAMILY PRACTICE 07/08/22 Brina Lopez NP [address] [facility] [address] [place] [phone] Nurse Practitioner Family 07/08/22 Diana Villalobos NP [address] [address] NURSE PRACTITIONER 07/08/22 documented as of this encounter
--- OUTSIDE RECORDS SUMMARY | 2024-08-25 12:03 | XMS_ITS | Encounter Summary ---
Author Organization [facility] Address [address] [place] [address] Care Team Providers Care Rollway Worker Name Role Phone Brina Lopez VICE PRESIDENT RESIDENTIAL SOLAR SALES Primary Care Provider [phone] Diana Villalobos NP Primary Care Provider [phone] Andreas Thomas MD Primary Care Provider [phone] Brina Lopez VICE PRESIDENT [employer]IDENT[employer] SALES Unavailable [phone] Diana Villalobos NP Unavailable [phone] Encounter Details Date Type Department Care Team (Late st Contact Info) Description 11/12/2018 Abstract SFL CONVERSION [address] [place] [address] , Generic Conversion, Social History Tobacco Use Types Packs/Day Years Used Date Smoking Tobacco: Never Assessed Comments Unknown Sex and Gender Information Value Date Recorded Sex Assigned at Not on file Legal Sex Female 5:46 PM MERCHANDISING CONSULTANT Gender Identity Not on file Sexual Orientation Not on file documented as of this encounter Plan of Treatment Not on file documented as of this encounter Visit Diagnoses Not on filedocumented in this encounter Care Teams Rollway Worker Relationship Specialty Start Date End Date Brina Lopez NP PCP - General Nurse Practitioner Family 02/02/20 912/26 Diana Villalobos NP [address] [phone] PCP - General NURSE PRACTITIONER 03/04/22 07/07/22 Andreas Thomas MD [address] [phone] PCP - General FAMILY PRACTICE 07/08/22 Brina Lopez NP [address] [phone] Nurse Practitioner Family 07/08/22 Diana Villalobos NP [address] [phone] NURSE PRACTITIONER 07/08/22 documented as of this encounter
--- OUTSIDE RECORDS SUMMARY | 2024-08-25 12:03 | XMS_ITS | Clinical Summary ---
Author Organization [facility] [place] [facility] Address [address] [place] [address] Care Team Providers Care Batching Operator Name Role Phone Andreas Thomas MD Primary Care Provider [phone] Brina Lopez REJECT OPENER Unavailable [phone] Diana Villalobos REJECT OPENER Unavailable [phone] Allergies No known active allergies Medications albuterol sulfate HFA 108 (90 Base) MCG/ACT inhaler Inhale 1 puff into the lungs every 4 (four) hours as needed for Wheezing. 07/21/2021 Active ARIPiprazole (ABILIFY) 2 MG tablet Take 1 tablet (2 mg total) by mouth daily. 01/26/2022 Active doxepin (SINEQUAN) 10 MG capsule Take 1 capsule (10 mg total) by mouth nightly at bedtime. 01/26/2022 Active QUEtiapine (SEROQUEL) 100 MG tablet Take 1 tablet (100 mg total) by mouth nightly at bedtime. 01/24/2022 Active sertraline (ZOLOFT) 100 MG tablet Take 2 tablets (200 mg total) by mouth daily. 01/21/2022 Active SUBOXONE 8-2 MG FILM Take 0.5 Film by mouth daily. 02/23/2022 Active doxycycline monohydrate 100 MG capsule 08/04/2023 Active famotidine (PEPCID) 20 MG tablet 10/28/2022 Active LORazepam (ATIVAN) 1 MG tablet 08/11/2023 Active ANORO ELLIPTA 62.5-25 MCG/ACT inhaler 08/11/2023 Active amLODIPine (NORVASC) 10 MG tablet TAKE 1 TABLET (10 MG TOTAL) BY MOUTH DAILY. 90 tablet 1 02/03/2024 Active lisinopril (PRINIVIL) 40 MG tablet TAKE 1 TABLET (40 MG TOTAL) BY MOUTH DAILY. 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 Secondary hypertension 03/24/2022 Menorrhagia 03/03/2022 Family History Medical History Relation Comments Cancer Father Colon Cancer Mother Relation Status Comments Father Alive Mother Social History Tobacco Use Types Packs/Day Years Used Date Smoking Tobacco: Every Day Cigarettes Smokeless Tobacco: Never Tobacco Cessation:Ready to Q uit: No; Counseling Given: No Alcohol Use Standard Drinks/Week Comments Not Currently 0 (1 standard drink = 0.6 oz pur e alcohol) Comments No Sex and Gender Information Value Date Recorded Sex Assigned at Not on file Legal Sex Female 5:46 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 Gender Identity Not on file Sexual Orientation Not on file Last Filed Vital Signs Vital Sign Reading Time Taken Comments Blood Pressure 120/68 09/13/2023 9:02 AM CDT Pulse 87 09/13/2023 9:02 AM CDT Temperature 36.4 C (97.5 F) 08/20/2023 7:42 AM CDT Respiratory Rate 12 09/13/2023 9:02 AM CDT Oxygen Saturation 98% 09/13/2023 9:02 AM CDT Inhaled Oxygen Concentration - - Weight 106.6 kg (235 lb) 09/13/2023 9:02 AM CDT Height 161.3 cm (5' 3.5 ) 09/13/2023 9:02 AM CDT Body Mass Index 40.98 09/13/2023 9:02 AM CDT Plan of Treatment Health Maintenance Due Date Last Done Comments ASCVD LDL 1980 ASCVD Statin 1980 Annual Physical 1983 Pneumococcal Vaccine: Pediatrics (0 to 5 Years) and At-Risk Patients (6 to 64 Years) (1 of 2 - PCV) 1986 Hepatitis C 1998 DTaP, Tdap and Td Vaccines (1 - Tdap) 1999 01/11/1985, 03/12/1982, 01/05/1981, Additional history exists Hepatitis B Vaccines (1 of 3 - 19+ 3-dose series) 1999 Mammogram Screening 2020 COVID-19 Vaccine ( - season) 2024 Influenza Adult (#1) 2024 Cervical Cancer Screening Pap Smear (Age 30 to 64) Every 3 Years 12/26/2024 12/26/2021, 02/02/2020 Cervical Cancer Screening Pap with HPV Testing (Age 30 to 64) Every 5 Years 12/26/2026 12/26/2021 Cervical Cancer Screening with HPV 12/26/2026 HPV Vaccines Aged Out No longer eligi ble based on patient's age to complete this topic Meningococcal B Vaccine Aged Out No l onger eligible based on patient's age to complete this topic Meningococcal Vaccine Aged Out No jose miguel sherrill eligible based on patient's age to complete this topic RSV Immunizations Under 20 Months Aged Out No longer eligible based on patient's age to complete this topic Goals Goal Patient Goal Type Associated Problems Recent Progress Patient-Stated? Author Patient will return to prior living situation and remain independent in ADLs upon discharge from hospital Lifestyle No 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 cook roast Procedure Name Priority Date/Time Associated Diagnosis Comments HUMAN PAPILLOMAVIRUS, HIGH-RISK TYPES Routine 12/26/2021 12:00 PM CDT CYTOPATH CERV/VAG THIN LAYER Routine 12/26/2021 8:40 AM CDT Cervical cancer screening from Last 3 Months or Most Recently Relevant to Health Maintenance Results * HUMAN PAPILLOMAVIRUS, HIGH-RISK TYPES (12/26/2021 12:00 PM CDT) SPEC DESCRIPTION CERVICAL/END OCERVICAL 12/30/2021 9:04 AM CDT [facility] HPV DNA HIGH RISK NEGATIVE NEGATIVE 12/31/2021 1:31 PM CDT [facility] Comment:SEE CYTOLOGY REPORT 12/26/2021 12:0 0 PM CDT Feliciano Doshi MD PATHOLOGY/CYTOLOGY ORDERABLES Final Result [facility] [address] [place] [address], * Cytopath Cerv/Vag Thin Layer (12/26/2021 8:40 AM CDT) THIN PREP PAP [facility] [address] [place] [address] Department of Pathology Pathology Report CERVICAL/VAGINAL PAP SMEAR REPORT Name: DAVID THOMPSON Age: 11 1980 (Age: 41) Location: [facility] Sex: F Collected Date: 12/26/2021 [facility] #: [id number] Date Received: 12/30/2021 Date Reported: 01/01/2022 Provider: FELICIANO LOPEZ REJECT OPENER INTERPRETATION CERVICAL/ENDOCERVI AMISH: SATISFACTORY FOR EVALUATION. ENDOCERVICAL/TRANS FORMATION ZONE COMPONENT ABSENT. NEGATIVE FOR INTRAEPITHELIAL LESION OR MALIGNANCY. NEGATIVE FOR HIGH RISK HPV. The FDA approved Aptima HPV assay is an in vitro nucleic acid amplification test for the qualitative detection of E6/E7 viral messenger RNA (mRNA) from 14 high-risk types of human papillomavirus (HPV) in cervical specimens. The high-risk HPV types detected by the assay include: 16,18,31,33,35,39, 45,51,52,56,58,59, 66, and 68. Electronically Signed Out By KEM Bee (ASCP) CLINICAL HISTORY SCREENING PAP TEST ThinPrep Pap Test with screening HR HPV testing requested, with reflex HPV 16/18 genotyping on negative cytology, positive HR HPV Date of Last Menstrual Period: UNKNOWN Menstrual Status: Irregular SPECIMEN SUBMITTED CERVICAL/ENDOCERVI AMISH Specimen Received:1 Thin Prep Vial, Image Assisted Pap (SMD) Please note: The Pap smear is not a diagnostic test. It is a screening test. Negative results on combined screening (Pap test and HPV-DNA) have a high negative predictive value (99.1-100 percent) for cervical cancer. The pap test is not effective in detecting cervical adenocarcinoma. [facility] 12/26/2021 8:40 AM CDT 12/30/2021 8:40 AM CDT Comment:CERVICAL/ENDOCERVICA L Feliciano Doshi MD PATHOLOGY/CYTOLOGY ORDERABLES Final Result [facility] [address] [facility] [place] [address], from Last 3 Months or Most Recently Relevant to Health Maintenance Insurance Advance Directives * Full Code (Latest Code Status on File) Date Activated Date Inactivated Comments 03/03/2022 4:50 PM 03/06/2022 2:11 PM Care Teams Batching Operator Relationship Specialty Start Date End Date Andreas Thomas MD PCP - General FAMILY PRACTICE 07/08/22 Brina Lopez NP [address] [phone] Nurse Practitioner Family 07/08/22 Diana Villalobos NP [address] [phone] NURSE PRACTITIONER 07/08/22
[2024-08-25 12:08] LABS: Lactic Acid Reflex 1.4 mmol/L (0.4-2.0)
[2024-08-25 12:09] LABS: D Dimer 0.79 mg/L (0.19-0.50)
--- OUTSIDE RECORDS SUMMARY | 2024-08-25 12:44 | XMS_ITS | Encounter Summary ---
Author Organization [facility] Address [address] [place] [address] Care Team Providers Care Auto Mechanics Instructor Name Role Phone Brina Lopez BLAST FURNACE CHECKER Primary Care Provider [phone] Diana Villalobos NP Primary Care Provider [phone] Andreas Thomas MD Primary Care Provider + [phone] Brina Lopez BLAST FURNACE CHECKER Unavailable + [phone] Diana Villalobos NP Unavailable [phone] Encounter Details Date Type Department Care Team (Late st Contact Info) Description 11/12/2018 Abstract SFL CONVERSION [address] [place] [address] , Generic Conversion, Social History Tobacco Use Types Packs/Day Years Used Date Smoking Tobacco: Never Assessed Comments Unknown Sex and Gender Information Value Date Recorded Sex Assigned at Not on file Legal Sex Female 5:46 PM MANAGER OF GLOBAL Gender Identity Not on file Sexual Orientation Not on file documented as of this encounter Plan of Treatment Not on file documented as of this encounter Visit Diagnoses Not on filedocumented in this encounter Care Teams Auto Mechanics Instructor Relationship Specialty Start Date End Date Brina Lopez NP PCP - General Nurse Practitioner Family 02/02/20 912/26 Diana Villalobos NP [address] [phone] PCP - General NURSE PRACTITIONER 03/04/22 07/07/22 Andreas Thomas MD [address] [address] PCP - General FAMILY PRACTICE 07/08/22 Brina Lopez NP [address] [address] Nurse Practitioner Family 07/08/22 Diana Villalobos NP [address] [address] NURSE PRACTITIONER 07/08/22 documented as of this encounter
--- OUTSIDE RECORDS SUMMARY | 2024-08-25 12:44 | XMS_ITS | Clinical Summary ---
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 Procedure Name Priority Date/Time Associated Diagnosis Comments HUMAN PAPILLOMAVIRUS, HIGH-RISK TYPES Routine 12/26/2021 12:00 PM CDT CYTOPATH CERV/VAG THIN LAYER Routine 12/26/2021 8:40 AM CDT Cervical cancer screening from Last 3 Months or Most Recently Relevant to Health Maintenance Results * HUMAN PAPILLOMAVIRUS, HIGH-RISK TYPES (12/26/2021 12:00 PM CDT) SPEC DESCRIPTION CERVICAL/END OCERVICAL 12/30/2021 9:04 AM CDT [facility] HPV DNA HIGH RISK NEGATIVE NEGATIVE 12/31/2021 1:31 PM CDT [facility] Comment:SEE CYTOLOGY REPORT 12/26/2021 12:0 0 PM CDT Feliciano Doshi MD PATHOLOGY/CYTOLOGY ORDERABLES Final Result [facility] [address] [place] [address], * Cytopath Cerv/Vag Thin Layer (12/26/2021 8:40 AM CDT) THIN PREP PAP [facility] [address] [place] [address] Department of Pathology Pathology Report CERVICAL/VAGINAL PAP SMEAR REPORT Name: DAVID THOMPSON Age: 11 1980 (Age: 41) Location: [facility] Sex: F Collected Date: 12/26/2021 [facility] #: [id number] Date Received: 12/30/2021 Date Reported: 01/01/2022 Provider: FELICIANO LOPEZ SIMULATION EDUCATOR INTERPRETATION CERVICAL/ENDOCERVI AMISH: SATISFACTORY FOR EVALUATION. ENDOCERVICAL/TRANS [...] is not effective in detecting cervical adenocarcinoma. [facility] 12/26/2021 8:40 AM CDT 12/30/2021 8:40 AM CDT Comment:CERVICAL/ENDOCERVICA L Feliciano Doshi MD PATHOLOGY/CYTOLOGY ORDERABLES Final Result [facility] [address] [facility] [place] [address], from Last 3 Months or Most Recently Relevant to Health Maintenance Insurance Advance Directives * Full Code (Latest Code Status on File) Date Activated Date Inactivated Comments 03/03/2022 4:50 PM 03/06/2022 2:11 PM Care Teams Master Baker Relationship Specialty Start Date End Date Andreas Thomas MD PCP - General FAMILY PRACTICE 07/08/22 Brina Lopez NP [address] [address] Nurse Practitioner Family 07/08/22 Diana Villalobos NP [address] [address] NURSE PRACTITIONER 07/08/22
--- OUTSIDE RECORDS SUMMARY | 2024-08-25 12:44 | XMS_ITS | Encounter Summary ---
Author Organization [facility] Address [facility] [place] [address] Care Team Providers Care Mechanical Supervisor Name Role Phone Diana Villalobos NP Primary Care Provider [phone] Andreas Thomas MD Primary Care Provider [phone] Brina Lopez REMELT WORKER Unavailable [phone] Diana Villalobos NP Unavailable [phone] Encounter Details Date Type Department Care Team (Late st Contact Info) Description 03/09/2022 Hospital Follow-up Call [facility] [address] [place] [address] Kristi Urias RN Social History Tobacco Use Types Packs/Day Years Used Date Smoking Tobacco: Every Day Cigarettes Smokeless Tobacco: Never Alcohol Use Standard Drinks/Week Comments Not Currently 0 (1 standard drink = 0.6 oz pur e alcohol) Comments Unknown Sex and Gender Information Value Date Recorded Sex Assigned at Not on file 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 Gender Identity Not on file Sexual Orientation [...] on filedocumented in this encounter Care Teams Mechanical Supervisor Relationship Specialty Start Date End Date Diana Villalobos NP [address] [phone] PCP - General NURSE PRACTITIONER 03/04/22 07/07/22 Andreas Thomas MD [address] [facility] [address] [place] [phone] PCP - General FAMILY PRACTICE 07/08/22 Brina Lopez NP [address] [facility] [address] [place] [phone] Nurse Practitioner Family 07/08/22 Diana Villalobos NP [address] [address] NURSE PRACTITIONER 07/08/22 documented as of this encounter
[2024-08-25 12:50] LABS: Alanine Aminotransferase 14 U/L (14-59); Albumin Level 3.1 g/dL (3.4-5.0); Alkaline Phosphatase 102 U/L (46-116); Anion Gap 8 mmol/L (4-12); Aspartate Amino Transferase < 10 U/L (15-37); Bilirubin,Total 0.2 mg/dL (0.00-1.00); Blood Urea Nitrogen 9 mg/dL (7-18); Calcium 8.8 mg/dL (8.5-10.1); Carbon Dioxide 29 mmol/L (21-32); Chloride 105 mmol/L (98-108); Estimated Glomerular Filt Rate > 60; Glucose 103 mg/dL (70-99); Lipase 27 U/L (16-77); NT Pro B Type Natriuretic Pept 173 pg/mL (0-125); Osmolality Calculated 292 mOsm/kg (285-295); Sodium 142 mmol/L (136-145); Total Protein 7.7 g/dL (6.4-8.2); Troponin I 12.1 ng/L (0.00-60.4)
[2024-08-25] MEDS: methylPREDNISolone SOD SUCC 125 MG VIAL IV PUSH (13:51)
[2024-08-25] MEDS: levoFLOXacin TAB 500 MG, levoFLOXacin TAB 250 MG 750 MG PO (13:51)
== END 2024-08-25 14:07 | disposition home or self-care (01) ==
PROVIDERS: Emergency Provider Emergency Medicine; PCP Family Medicine
DX: J18.9 Pneumonia, unspecified organism (principal); Z20.822 Contact with and (suspected) exposure to COVID-19
CPT/HCPCS: 36415; 71046; 71275; 80053; 83605; 83690; 83880; 84484; 85025; 85380; 85610; 85730; 87637; 93005; 96374; 99284; A9270; J2919; Q9967

== ENCOUNTER 2024-09-26 07:21 | Emergency (ER) | payer BC, SELFPAY ==
--- NOTE | ~2024-09-26 | XR_ITS ---
Portable chest x-ray Comparison: 08/25/2024 Clinical History: Shortness of breath Findings: There is central congestive change and probable mild bibasilar pulmonary edema. Cardiomed iastinal silhouette is stable. Bones and soft tissues are unremarkable. Impression: Central congestive change and probable mild bibasilar pulmonary edema. Reviewed, dictated and finalized at location . Impression: Central congestive change and probable mild bibasilar pulmonary edema.
[2024-09-26 07:21] VITALS: O2SAT 96
[2024-09-26 07:22] VITALS: BP 148/84; PULSE 92; RESP 18; TEMP 36.7; O2SAT 96
--- OUTSIDE RECORDS SUMMARY | 2024-09-26 07:25 | XMS_ITS | Encounter Summary ---
Author Organization [facility] Address [facility] [place] [address] Care Team Providers Care Csr Retail Name Role Phone Diana Villalobos NP Primary Care Provider [phone] Andreas Thomas MD Primary Care Provider [phone] Brina Lopez PHLEBOTOMIST PRN Unavailable [phone] Diana Villalobos NP Unavailable [phone] Encounter Details Date Type Department Care Team (Late st Contact Info) Description 03/09/2022 Hospital Follow-up Call [facility] [address] [place] [address] Kristi Urias RN Social History Tobacco Use Types Packs/Day Years Used Date Smoking Tobacco: Every Day Cigarettes Smokeless Tobacco: Never Alcohol Use Standard Drinks/Week Comments Not Currently 0 (1 standard drink = 0.6 oz pur e alcohol) Comments Unknown Sex and Gender Information Value Date Recorded Sex Assigned at Not on file 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
--- OUTSIDE RECORDS SUMMARY | 2024-09-26 07:25 | XMS_ITS | Clinical Summary ---
Author Organization [facility] Address [address] [place] [address] Care Team Providers Care Plaster Machine Operator Name Role Phone Andreas Thomas MD Primary Care Provider [phone] Brina Lopez INGOT PASSER Unavailable [phone] Diana Villalobos INGOT PASSER Unavailable [phone] Allergies No known active allergies Medications albuterol sulfate HFA 108 (90 Base) MCG/ACT inhaler Inhale 1 puff into the lungs every 4 (four) hours as needed for Wheezing. 2 Active ARIPiprazole (ABILIFY) 2 MG tablet Take 1 tablet (2 mg total) by mouth daily. 2 Active doxepin (SINEQUAN) 10 MG capsule Take 1 capsule (10 mg total) by mouth nightly at bedtime. 2 Active QUEtiapine (SEROQUEL) 100 MG tablet Take 1 tablet (100 mg total) by mouth nightly at bedtime. 2 Active sertraline (ZOLOFT) 100 MG tablet Take 2 tablets (200 mg total) by mouth daily. 2 Active SUBOXONE 8-2 MG FILM Take 0.5 Film by mouth daily. 2 Active doxycycline monohydrate 100 MG capsule 4 Active famotidine (PEPCID) 20 MG tablet 3 Active LORazepam (ATIVAN) 1 MG tablet 4 Active ANORO ELLIPTA 62.5-25 MCG/ACT inhaler 4 Active lisinopril (PRINIVIL) 40 MG tablet TAKE 1 TABLET (40 MG TOTAL) BY MOUTH DAILY. 90 tablet 1 4 Active amLODIPine (NORVASC) 10 MG tabletIndicatio ns:Hypertension , essential TAKE 1 TABLET (10 MG TOTAL) BY MOUTH DAILY. 90 tablet 1 5 Active amLODIPine (NORVASC) 10 MG tablet TAKE 1 TABLET (10 MG TOTAL) BY MOUTH DAILY. 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 Gender Identity Not on file Sexual Orientation [...] 1980 ASCVD Statin 1980 Annual Physical 1983 Hepatitis C 1998 DTaP, Tdap and Td Vaccines (1 - Tdap) 1999 01/11/1985, 03/12/1982, 01/05/1981, Additional history exists Hepatitis B Vaccines (1 of 3 - 19+ 3-dose series) 1999 Pneumococcal Vaccine: Pediatrics (0 to 5 Years) and At-Risk Patients (6 to 49 Years) (1 of 2 - PCV) 1999 Mammogram Screening 2020 COVID-19 Vaccine (1 - season) 2024 Cervical Cancer Screening Pap Smear (Age [...] upon discharge from hospital Lifestyle No 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, 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 Procedure Name Priority Date/Time Associated Diagnosis Comments HUMAN PAPILLOMAVIRUS, HIGH-RISK TYPES Routine 12/26/2021 12:00 PM CDT CYTOPATH CERV/VAG THIN LAYER Routine 12/26/2021 8:40 AM CDT Cervical cancer screening from Last 3 Months or Most Recently Relevant to Health Maintenance Results * HUMAN PAPILLOMAVIRUS, HIGH-RISK TYPES (12/26/2021 12:00 PM CDT) SPEC DESCRIPTION CERVICAL/END OCERVICAL 12/30/2021 9:04 AM CDT [facility] HPV DNA HIGH RISK NEGATIVE NEGATIVE 12/31/2021 1:31 PM CDT [facility] Comment:SEE CYTOLOGY REPORT 12/26/2021 12:0 0 PM CDT us Feliciano Doshi MD PATHOLOGY/CYTOLOGY ORDERABLES Final Result [facility] [address] [place] [address], * Cytopath Cerv/Vag Thin Layer (12/26/2021 8:40 AM CDT) THIN PREP PAP [facility] [address] [place] [address] Department of Pathology Pathology Report CERVICAL/VAGINAL PAP SMEAR REPORT Name: DAVID THOMPSON Age: 11 1980 (Age: 41) Location: [facility] Sex: F Collected Date: 12/26/2021 [facility] #: [id number] Date Received: 12/30/2021 Date Reported: 01/01/2022 Provider: FELICIANO LOPEZ INGOT PASSER INTERPRETATION CERVICAL/ENDOCERVI AMISH: SATISFACTORY FOR EVALUATION. ENDOCERVICAL/TRANS [...] not effective in detecting cervical adenocarcinoma. [facility] 12/26/2021 8:40 AM CDT 12/30/2021 8:40 AM CDT Comment:CERVICAL/ENDOCERVICA L us Feliciano Doshi MD PATHOLOGY/CYTOLOGY ORDERABLES Final Result [facility] [address] [place] [address], from Last 3 Months or Most Recently Relevant to Health Maintenance Insurance [employer] [facility] [id number] [place] [address] Advance Directives * Full Code (Latest Code Status on File) Date Activated Date Inactivated Comments 03/03/2022 4:50 PM 03/06/2022 2:11 PM Care Teams Plaster Machine Operator Relationship Specialty Start Date End Date Andreas Thomas MD PCP - General FAMILY PRACTICE 07/08/22 Brina Lopez NP [address] [facility] [address] [place] [address] Nurse Practitioner Family 07/08/22 Diana Villalobos NP [address] [facility] [address] [place] [address] NURSE PRACTITIONER 07/08/22
--- OUTSIDE RECORDS SUMMARY | 2024-09-26 07:25 | XMS_ITS | Encounter Summary ---
Author Organization [facility] Address [address] [place] [address] Care Team Providers Care Supervisor Name Role Phone Brina Lopez NUCLEAR ENGINEERING TECHNICIAN Primary Care Provider [phone] Diana Villalobos NP Primary Care Provider [phone] Andreas Thomas MD Primary Care Provider + [phone] Brina Lopez NUCLEAR ENGINEERING TECHNICIAN Unavailable + [phone] Diana Villalobos NP Unavailable [phone] Encounter Details Date Type Department Care Team (Late st Contact Info) Description 11/12/2018 Abstract SFL CONVERSION [address] [place] [address] , Generic Conversion, Social History Tobacco Use Types Packs/Day Years Used Date Smoking Tobacco: Never Assessed Comments Unknown Sex and Gender Information Value Date Recorded Sex Assigned at Not on file 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 Gender Identity Not on file Sexual Orientation Not on file documented as of this encounter Plan of Treatment Not on file documented as of this encounter Visit Diagnoses Not on filedocumented in this encounter Care Teams Supervisor Relationship Specialty Start Date End Date Birna Lopez NP PCP - General Nurse Practitioner Family 02/02/20 912/26 Diana Villalobos NP [address] [phone] PCP - General NURSE PRACTITIONER 03/04/22 07/07/22 Andreas Thomas MD [address] [address] PCP - General FAMILY PRACTICE 07/08/22 Brina Lopez NP [address] [address] Nurse Practitioner Family 07/08/22 Diana Villalobos NP [address] [address] NURSE PRACTITIONER 07/08/22 documented as of this encounter
--- NOTE | 2024-09-26 07:29 | ECG_ITS ---
Test Date: 2024-09-26 07:45:20 Measurements Intervals [place] Rate: 81 P: 78 CT: 156 QRS: 89 QRSD: 89 T: 62 QT: 370 QTc: 432 Interpretive Statements SINUS RHYTHM DELAYED PRECORDIAL R/S TRANSITION BORDERLINE ST ABNORMALITY- INFERIOR LEADS BASELINE ARTIFACT- II, III, AVF BORDERLINE ECG Compared to ECG 08/25/2024 11:53:15 NO SIGNIFICANT CHANGE Electronically Signed On 09-26-2024 08:15:14 CDT by Bret Crowley D.O.
--- NOTE | 2024-09-26 07:29 | ED_ITS ---
HPI - General Adult General Chief complaint: Unspecified Stated complaint: possible pneumonia Time Seen by Provider: 09/26/24 07:23 History of Present Illness HPI narrative: Daria is a previously healthy 44F that presented to the ED with a couple weeks of cough, bilateral lower chest pain, dyspnea on exertion and a fever up to 101 for the last couple nights. No near syncope, anxiety or radiating CP. Related Data Home Medications ?Medication ?Instructions ?Recorded ?Confirmed ?Last Taken ?Type alprazolam 0.5 mg tablet 0.5 mg PO Q4-6H PRN Anxiety 04/27/19 02/03/22 Unknown History amitriptyline 50 mg tablet 50 mg PO DAILY 04/27/19 02/03/22 Unknown History fluoxetine 20 mg capsule 20 mg PO DAILY 04/27/19 02/03/22 Unknown History naloxone 4 mg/actuation nasal 1 spray intranasal PRN PRN Opioid 04/27/19 02/03/22 Unknown History spray (Narcan) Overdose propranolol 10 mg tablet 10 mg PO DAILY 04/27/19 02/03/22 Unknown History quetiapine 300 mg tablet 300 mg PO HS 04/27/19 02/03/22 Unknown History Allergies Allergy/AdvReac Type Severity Reaction Status Date / Time No Known Allergies Allergy Verified 09/26/24 07:25 Review of Systems 2 Review of Systems: All systems reviewed & are unremarkable except as noted in HPI and below [facility] Past Medical History Medical History Toothache UTI (urinary tract infection) Abdominal pain Anxiety Insomnia Exam 2 Const: General: cooperative, healthy appearing, comfortable, no acute distress, well developed, alert, awake and Physically active O rientation/consciousness: oriented to person, oriented to place and oriented to time HENMT: Head: normal to inspection, normocephalic and atraumatic Ears: h earing grossly normal bilaterally and external ears normal Face/Nose/Sinus: N ormal external nose present Eyes: General: appearance normal, both eyes and all related structures P eriorbital: periorbital findings normal Sclera: sclerae normal Pupils: E qual, round and reactive pupils present Neck: Neck: normal visual inspection Chest: Chest palpation & inspection: normal inspection of the chest Resp: Effort & Inspection: normal respiratory effort, able to speak in complete sentences and no respiratory distress Other: scant wheezing Cardio: Jugular venous distension: no JVD Rate: regular rate Rhythm: r egular rhythm GI: Inspection: normal to inspection GI Palp: Yes Soft to palpation A uscultation: normal bowel sounds Skin: General skin exam: normal color and no rashes or lesions noted Neuro: General: oriented to person, oriented to place and oriented to time Cranial nerves: Yes Equal, round and reactive pupils present Extrem: General: normal to inspection Course Course Emergency Course: Ordered EKG, CXR and labs. EKG showed NSR with a rate of 81, no ectopy or ST elevation/depression Portable chest x-ray Comparison: 08/25/2024 Clinical History: Shortness of breath Findings: There is central congestive change and probable mild bibasilar pulmonary edema. Cardiomediastinal silhouette is stable. Bones and soft tissues are unremarkable. Impression: Central congestive change and probable mild bibasilar pulmonary edema. Labs largely unremarkable. Vital Signs Vital signs: Vital Signs Temperature 98.0 F 09/26/24 07:22 Pulse Rate 92 09/26/24 07:22 Respiratory Rate 18 09/26/24 07:22 Blood Pressure 148/84 H 09/26/24 07:22 Pulse Oximetry 96 09/26/24 07:22 Oxygen Delivery Room Air 09/26/24 07:22 Temperature 98.0 F 09/26/24 07:22 Pulse Rate 92 09/26/24 07:22 Respiratory Rate 18 09/26/24 07:22 Blood Pressure 148/84 H 09/26/24 07:22 Pulse Oximetry 96 09/26/24 07:22 Oxygen Delivery Room Air 09/26/24 07:22 Medical Decision Making Vital Signs Vital Signs: Vital Signs Temperature 98.0 F 09/26/24 07:22 Pulse Rate 92 09/26/24 07:22 Respiratory Rate 18 09/26/24 07:22 Blood Pressure 148/84 H 09/26/24 07:22 Pulse Oximetry 96 09/26/24 07:22 Oxygen Delivery Room Air 09/26/24 07:22 Temperature 98.0 F 09/26/24 07:22 Pulse Rate 92 09/26/24 07:22 Respiratory Rate 18 09/26/24 07:22 Blood Pressure 148/84 H 09/26/24 07:22 Pulse Oximetry 96 09/26/24 07:22 Oxygen Delivery Room Air 09/26/24 07:22 Lab Data 09/26/24 07:36 09/26/24 07:37 Labs: Lab Results 09/26/24 09/26/24 09/26/24 Range/Units 07:24 07:36 07:37 WBC 10.9 H (4.8-10.8) K/mm3 RBC 3.87 L (4.20-5.40) M/mm3 Hgb 11.2 L (12.0-15.0) g/dL Hct 35.2 (35.0-49.0) % MCV 91.0 (78.0-102.0) fL MCH 28.9 (27.0-31.0) pg MCHC 31.8 L (32-36) g/dL RDW 15.9 H (11.6-14.4) % Plt Count 406 (150-420) K/mm3 MPV 9.2 (9.2-11.8) fl Immature Gran % (Auto) 0.6 H (0.0-0.0) % Neut % (Auto) 71.2 H (50.0-70.0) % Lymph % (Auto) 19.9 (18.0-42.0) % Nicholas % (Auto) 6.9 (2.0-11.0) % Eos % (Auto) 1.0 (1.0-6.0) % Baso % (Auto) 0.4 (0.0-1.0) % Lymph # (Auto) 2.16 (1.10-4.50) K/mm3 Nicholas # (Auto) 0.75 (0.10-0.90) K/mm3 Eos # (Auto) 0.11 (0.02-0.50) K/mm3 Baso # (Auto) 0.04 (0.00-0.10) K/mm3 Abs Immat Gran (auto) 0.06 H (0.00-0.00) K/mm3 Absolute Neuts (auto) 7.76 H (1.70-7.20) K/mm3 Absolute Nucleated RBC 0.00 (0.00-0.00) K/mm3 Nucleated RBC % 0.0 (0-0.0) % Sodium 142 (136-145) mmol/L Potassium 3.7 (3.5-5.1) mmol/L Chloride 104 (98-108) mmol/L Carbon Dioxide 30 (21-32) mmol/L Anion Gap 8 (4-12) mmol/L BUN 10 (7-18) mg/dL Creatinine 0.77 (0.55-1.02) mg/dL Estim Creat Clear Calc 103 ml/min Estimated GFR > 60 (59 - ) Glucose 121 H (70-99) mg/dL Calculated Osmolality 294 (285-295) mOsm/kg Calcium 8.7 (8.5-10.1) mg/dL Magnesium 1.7 L (1.8-2.4) mg/dL Total Bilirubin 0.2 (0.00-1.00) mg/dL AST < 10 L (15-37) U/L ALT 14 (14-59) U/L Alkaline Phosphatase 97 (46-116) U/L Troponin I 9.6 (0.00-60.4) ng/L NT-Pro-B Natriuret Pep 73 (0-125) pg/mL Total Protein 7.1 (6.4-8.2) g/dL Albumin 2.8 L (3.4-5.0) g/dL Lipase 27 (16-77) U/L Influenza A (RT-PCR) Negative (Negative) Influenza B (RT-PCR) Negative (Negative) RSV (RT-PCR) Negative (Negative) SARS-CoV-2 RNA (RT-PCR) Negative (Negative) Discharge Plan Discharge Clinical Impression: Bronchitis Patient Disposition: Home Condition: Stable Instructions: Antibiotic Form Patient Language: Sammarinese Prescriptions: New doxycycline hyclate 100 mg tablet 100 mg PO DAILY Qty: 10 0RF prednisone 50 mg tablet 50 mg PO DAILY Qty: 5 0RF No Action quetiapine 300 mg tablet 300 mg PO HS amitriptyline 50 mg tablet 50 mg PO DAILY alprazolam 0.5 mg tablet 0.5 mg PO Q4-6H PRN (Reason: Anxiety) propranolol 10 mg tablet 10 mg PO DAILY fluoxetine 20 mg capsule 20 mg PO DAILY naloxone [Narcan] 4 mg/actuation spray,non-aerosol 1 spray INTRANASAL PRN PRN (Reason: Opioid Overdose) albuterol sulfate [ProAir HFA] 90 mcg/actuation HFA aerosol inhaler 1 puff INHALATION QID PRN (Reason: shortness of breath) Qty: 6.7 0RF sulfamethoxazole-trimethoprim [Bactrim DS] 800-160 mg tablet 1 tablet PO Q12H Qty: 20 0RF ibuprofen 800 mg tablet 800 mg PO TID Qty: 20 0RF omeprazole magnesium [Prilosec OTC] 20 mg tablet,delayed release (DR/EC) 20 mg PO BID Qty: 20 0RF ibuprofen 800 mg tablet 800 mg PO TID Qty: 20 0RF omeprazole 20 mg capsule,delayed release(DR/EC) 20 mg PO BID Qty: 20 0RF clonidine HCl 0.2 mg tablet 0.2 mg PO BID Qty: 10 0RF albuterol sulfate [Ventolin HFA] 90 mcg/actuation HFA aerosol inhaler 2 inh inhalation QID PRN (Reason: shortness of breath or wheezing) Qty: 6.7 0RF levofloxacin 500 mg tablet 500 mg PO DAILY 7 Days Qty: 7 0RF methylprednisolone [Medrol (Yuval)] 4 mg tablets,dose pack See Rx Instructions .ROUTE .COMPLEX Qty: 21 0RF Rx Instructions: orally per package directions Follow-up/Referrals: Shiva Bah MD [Primary Care Provider] -
[2024-09-26 07:40] LABS: Basophils Absolute Auto 0.04 K/mm3 (0.00-0.10); Basophils Percent Auto 0.4 % (0.0-1.0); Eosinophils Absolute Auto 0.11 K/mm3 (0.02-0.50); Hematocrit 35.2 % (35.0-49.0); Hemoglobin 11.2 g/dL (12.0-15.0); Immature Granulocyte Absolute 0.06 K/mm3 (0.00-0.00); Immature Granulocyte Percent A 0.6 % (0.0-0.0); Lymphocytes Absolute Auto 2.16 K/mm3 (1.10-4.50); Lymphocytes Percent Auto 19.9 % (18.0-42.0); Mean Corpuscular HGB Conc 31.8 g/dL (32-36); Mean Corpuscular Hemoglobin 28.9 pg (27.0-31.0); Mean Platelet Volume 9.2 fl (9.2-11.8); Monocytes Absolute Auto 0.75 K/mm3 (0.10-0.90); Monocytes Percent Auto 6.9 % (2.0-11.0); Neutrophils Absolute Auto 7.76 K/mm3 (1.70-7.20); Neutrophils Percent Auto 71.2 % (50.0-70.0); Platelet Count Result 406 K/mm3 (150-420); Red Blood Count 3.87 M/mm3 (4.20-5.40); Red Cell Distribution Width 15.9 % (11.6-14.4); White Blood Count 10.9 K/mm3 (4.8-10.8)
[2024-09-26 08:05] LABS: Alanine Aminotransferase 14 U/L (14-59); Albumin Level 2.8 g/dL (3.4-5.0); Alkaline Phosphatase 97 U/L (46-116); Anion Gap 8 mmol/L (4-12); Aspartate Amino Transferase < 10 U/L (15-37); Bilirubin,Total 0.2 mg/dL (0.00-1.00); Blood Urea Nitrogen 10 mg/dL (7-18); Calcium 8.7 mg/dL (8.5-10.1); Carbon Dioxide 30 mmol/L (21-32); Chloride 104 mmol/L (98-108); Estimated CRCL calculation 103 ml/min; Estimated Glomerular Filt Rate > 60; Glucose 121 mg/dL (70-99); Lipase 27 U/L (16-77); Magnesium 1.7 mg/dL (1.8-2.4); NT Pro B Type Natriuretic Pept 73 pg/mL (0-125); Osmolality Calculated 294 mOsm/kg (285-295); Potassium 3.7 mmol/L (3.5-5.1); Sodium 142 mmol/L (136-145); Total Protein 7.1 g/dL (6.4-8.2); Troponin I 9.6 ng/L (0.00-60.4)
[2024-09-26 08:16] LABS: Influenza A QL RT-PCR Negative (Negative); Influenza B QL RT-PCR Negative (Negative); RSV RNA, RT-PCR Negative (Negative); SARS-CoV-2 RNA PCR Negative (Negative)
[2024-09-26] MEDS: DOXYCYCLINE HYCLATE 100 MG TABLET PO (08:20)
[2024-09-26 08:30] VITALS: BP 133/78; PULSE 77; RESP 17; TEMP 36.7; O2SAT 95
== END 2024-09-26 08:30 | disposition home or self-care (01) ==
PROVIDERS: Emergency Provider Family Medicine; PCP Internal Medicine
DX: J40 Bronchitis, not specified as acute or chronic (principal); Z20.822 Contact with and (suspected) exposure to COVID-19
CPT/HCPCS: 36415; 71045; 80053; 83690; 83735; 83880; 84484; 85025; 87637; 93005; 99284; A9270

== ENCOUNTER 2024-10-09 20:44 | Observation (INO) | payer BC, SELFPAY ==
[2024-10-09] VITALS (10 sets, daily range): BP systolic 117–188; BP diastolic 72–87; PULSE 69–95; RESP 14–19; TEMP 36.6; O2SAT 94–97
--- NOTE | ~2024-10-09 | XR_ITS ---
CHEST RADIOGRAPH, PA AND LATERAL CLINICAL HISTORY: SOB and walking pneumonia x2 weeks . COMPARISON: 09/26/2024 TECHNIQUE: PA and lateral views of the chest. FINDINGS The cardiomediastinal silhouette is unremarkable. Increased opacification within the right middle lobe for which an infiltrate is suspected. The remainder of the lungs are clear IMPRESSION: Right middle lobe infiltrate. Reviewed, dictated and finalized at location A.
--- NOTE | ~2024-10-09 | CT_ITS ---
CLINICAL INDICATION: shortness of breath with bloating COMPARISON: 08/25/2024 and 12/13/2021. TECHNIQUE: An enhanced CT of the chest, abdomen and pelvis was performed utilizing multislice spiral technique reconstructed at 5 mm slice thickness. Coronal and sagittal reconstructions were performed . This CT examination was performed utilizing dose reduction techniques. DLP: 1802 mGy-cm FINDINGS/OBSERVATIONS: Lung: Patchy groundglass opacification detected bilaterally, suggesting multifocal pneumonia. The heart is borderline enlarged, without pericardial effusion. Mediastinum: Scattered mediastinal lymph nodes are identified, the largest within the aortopulmonary window measuring 14 mm in short axis dimension. Bilateral hilar lymphadenopathy is also present. The largest lymph node on the left measuring 18 mm i n short axis dimension. The largest lymph node the right measuring 20 mm in short axis dimension. No additional pathologically enlarged or morphologically suspicious lymph nodes are identified within the mediastinum, bilateral axilla, or within the soft tissues of the anterior chest wall. Soft tissues of the chest: Unremarkable. Bones of the chest: No acute fracture. No lytic or blastic lesions are identified. Liver: The liver enhances homogeneously and is enlarged measuring 20 cm in longitudinal dimension. Gallbladder and biliary system: The gallbladder is surgically absent. Pancreas: The pancreas enhances homogeneously, without ductal dilatation. Spleen: Kidneys: The bilateral kidneys enhance symmetrically without hydronephrosis or renal calculi. Adrenal glands: Redemonstration of enlargement of the left adrenal gland, which demonstrates soft tissue attenuation measuring 3.4 x 3.3 x 3.4 cm, unchanged from previous examination dated 12/13/2021. The right adrenal gland is unremarkable. Gastrointestinal tract: Mural thickening and edema is identified within the cecum and ascending colon with trace surrounding inflammatory change, findings suggesting a diffuse enteritis. Fecal stasis within the rectosigmoid colon. Distension of the rectum by aerated stool. Appendix: Surgically absent. Vasculature: No calcified atherosclerotic disease is present. No aneurysmal dilatation. Lymph nodes: Scattered nonpathologically enlarged lymph nodes within the root of the mesentery and deep in the pel vis, a nonspecific finding. Pelvic structures: The bladder is minimally distended and otherwise unremarkable. The uterus is either surgically absent or atrophic Body wall and musculoskeletal: Small fat-containing umbilical hernia. No significant degenerative disease within the thoracic, or lumbosacral spines. IMPRESSION: Findings suggesting multifocal pneumonia with mediastinal and hilar lymphadenopathy. Additional findings within the ascending colon suggesting a focal enteritis. Reviewed, dictated and finalized at location A. IMPRESSION: Findings suggesting multifocal pneumonia with mediastinal and hilar lymphadenop athy. Additional findings within the ascending colon suggesting a focal enteritis.
--- OUTSIDE RECORDS SUMMARY | 2024-10-09 20:46 | XMS_ITS | Clinical Summary ---
Author Organization [facility] Address [address] [place] [address] Care Team Providers Care Harness Worker Name Role Phone Andreas Thomas MD Primary Care Provider [phone] Brina Lopez BUSINESS INTEGRATION ANALYST Unavailable [phone] Diana Villalobos BUSINESS INTEGRATION ANALYST Unavailable [phone] Allergies No known active allergies Medications albuterol [...] ANORO ELLIPTA 62.5-25 MCG/ACT inhaler 08/11/2023 Active lisinopril (PRINIVIL) 40 MG tablet TAKE 1 TABLET (40 MG TOTAL) BY MOUTH DAILY. 90 tablet 1 05/01/2024 Active amLODIPine (NORVASC) 10 MG tabletIndication s:Hypertension, essential TAKE 1 TABLET (10 MG TOTAL) BY MOUTH DAILY. 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 Gender Identity Not on file Sexual Orientation [...] PCV) 1999 Mammogram Screening 2020 COVID-19 Vaccine ( - 2023- season) 2024 Cervical Cancer Screening Pap Smear [...] from hospital Lifestyle No 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 RN Procedures Procedure Name Priority Date/Time Associated Diagnosis Comments HUMAN PAPILLOMAVIRUS, HIGH-RISK TYPES Routine 12/26/2021 12:00 PM CDT CYTOPATH CERV/VAG THIN LAYER Routine 12/26/2021 8:40 AM CDT Cervical cancer screening from Last 3 Months or Most Recently Relevant to Health Maintenance Results * HUMAN PAPILLOMAVIRUS, HIGH-RISK TYPES (12/26/2021 12:00 PM CDT) SPEC DESCRIPTION CERVICAL/END OCERVICAL 12/30/2021 9:04 AM CDT [facility] HPV DNA HIGH RISK NEGATIVE NEGATIVE 12/31/2021 1:31 PM CDT [facility] Comment:SEE CYTOLOGY REPORT 12/26/2021 12:0 0 PM CDT us Feliciano Doshi MD PATHOLOGY/CYTOLOGY ORDERABLES Final Result [facility] [address] [place] [address], * Cytopath Cerv/Vag Thin Layer (12/26/2021 8:40 AM CDT) THIN PREP PAP [employer] [facility] [address] [place] [address] Department of Pathology Pathology Report CERVICAL/VAGINAL PAP SMEAR REPORT Name: DAVID THOMPSON Age: 11 1980 (Age: 41) Location: [facility] Sex: F Collected Date: 12/26/2021 [facility] #: [id number] Date Received: 12/30/2021 Date Reported: 01/01/2022 Provider: FELICIANO LOPEZ BUSINESS INTEGRATION ANALYST INTERPRETATION CERVICAL/ENDOCERVI AMISH: SATISFACTORY FOR EVALUATION. ENDOCERVICAL/TRANS [...] is not effective in detecting cervical adenocarcinoma. [facility] 12/26/2021 8:40 AM CDT 12/30/2021 8:40 AM CDT Comment:CERVICAL/ENDOCERVICA L Feliciano Doshi MD PATHOLOGY/CYTOLOGY ORDERABLES Final Result [facility] [address] [id number], from Last 3 Months or Most Recently Relevant to Health Maintenance Insurance [employer] [facility] Advance Directives * Full Code (Latest Code Status on File) Date Activated Date Inactivated Comments 03/03/2022 4:50 PM 03/06/2022 2:11 PM Care Teams Harness Worker Relationship Specialty Start Date End Date Andreas Thomas MD PCP - General FAMILY PRACTICE 07/08/22 Brina Lopez NP [address] [facility] [address] [place] [address] Nurse Practitioner [facility] 07/08/22 Diana Villalobos NP [address] [facility] [address] [place] [address] NURSE PRACTITIONER 07/08/22
--- OUTSIDE RECORDS SUMMARY | 2024-10-09 20:46 | XMS_ITS | Encounter Summary ---
Author Organization [facility] Address [facility] [place] [address] Care Team Providers Care Rn Admission Name Role Phone Diana Villalobos NP Primary Care Provider [phone] Andreas Thomas MD Primary Care Provider [phone] Brina Lopez RECYCLING WORKER Unavailable [phone] Diana Villalobos NP Unavailable [phone] Encounter Details Date Type Department Care Team (Late st Contact Info) Description 03/09/2022 Hospital Follow-up Call [facility] [address] [place] [address] Kristi Urias RN Social History Tobacco Use Types Packs/Day Years Used Date Smoking Tobacco: Every Day Cigarettes Smokeless Tobacco: Never Alcohol Use Standard Drinks/Week Comments Not Currently 0 (1 standard drink = 0.6 oz pur e alcohol) Comments Unknown Sex and Gender Information Value Date Recorded Sex Assigned at Not on file Legal Sex Female 5:46 PM 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 Gender Identity Not on file Sexual Orientation [...] on filedocumented in this encounter Care Teams Rn Admission Relationship Specialty Start Date End Date Diana Villalobos NP [address] [phone] PCP - General NURSE PRACTITIONER 03/04/22 07/07/22 Andreas Thomas MD [address] [facility] [address] [place] [phone] PCP - General FAMILY PRACTICE 07/08/22 Brina Lopez NP [address] [facility] [address] [place] [id number] Nurse Practitioner Family 07/08/22 Diana Villalobos NP [address] [address] NURSE PRACTITIONER 07/08/22 documented as of this encounter
--- OUTSIDE RECORDS SUMMARY | 2024-10-09 20:46 | XMS_ITS | Encounter Summary ---
Author Organization [facility] Address [address] [place] [address] Care Team Providers Care Piano Refinisher Name Role Phone Brina Lopez WAREHOUSEMAN Primary Care Provider [phone] Diana Villalobos NP Primary Care Provider [phone] Andreas Thomas MD Primary Care Provider [phone] Brina Lopez WAREHOUSEMAN Unavailable [phone] Diana Villalobos NP Unavailable [phone] Encounter Details Date Type Department Care Team (Late st Contact Info) Description 11/12/2018 Abstract [facility] CONVERSION [address] [place] [address] , Generic Conversion, Social History Tobacco Use Types Packs/Day Years Used Date Smoking Tobacco: Never Assessed Comments Unknown Sex and Gender Information Value Date Recorded Sex Assigned at Not on file Legal Sex Female 5:46 PM TRAILER 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 Gender Identity Not on file Sexual Orientation Not on file documented as of this encounter Plan of Treatment Not on file documented as of this encounter Visit Diagnoses Not on filedocumented in this encounter Care Teams Piano Refinisher Relationship Specialty Start Date End Date Brina Lopez NP PCP - General Nurse Practitioner Family 02/02/20 912/26 Diana Villalobos NP [address] [phone] PCP - General NURSE PRACTITIONER 03/04/22 07/07/22 Andreas Thomas MD [address] [phone] PCP - General FAMILY PRACTICE 07/08/22 Brina Lopez NP [address] [phone] Nurse Practitioner Family 07/08/22 Diana Villalobos NP [address] [phone] NURSE PRACTITIONER 07/08/22 documented as of this encounter
--- NOTE | 2024-10-09 20:58 | ED_ITS ---
HPI - SOB/Dyspnea General Chief Complaint: Shortness of Breath/Dyspnea Stated Complaint: upper respiratory Time Seen by Provider: 10/09/24 20:57 Source: patient Mode of arrival: ambulatory Limitations: no limitations History of Present Illness HPI Narrative: 44 YEARS OLD WHITE FEMALE CAME TO THE ED BY PRIVATE CAR FROM HOME COMPLAINING OF LEFT LOWER CHEST LEFT UPPER QUADRANT PAIN STARTED 2 HOURS PRIOR TO ARRIVAL. PATIENT REPORTED BEEN HAVING INTERMITTENT SHORTNESS OF BREATH SINCE August, HAD 1 COURSE OF ANTIBIOTIC FOR 10 DAYS GOT BETTER DURING THAT PERIOD OF TIME, THEN GOT WORSE AFTER FINISHING THE ANTIBIOTIC. STARTED ON ANOTHER ANTIBIOTIC FOR 5 DAYS GOT BETTER DURING ANTIBIOTIC INTAKE THEN GOT WORSE AGAIN. PATIENT DOES NOT HAVE A FAMILY PHYSICIAN. PATIENT DENIES ANY FEVER CHILLS NAUSEA VOMITING DIARRHEA. HISTORY OF HYPERTENSION, COPD ANXIETY AND CIGARETTE SMOKING AND MARIJUANA USE INTERMITTENTLY. PATIENT USUALLY TAKE HER ATIVAN AT NIGHT. Related Data Home Medications ?Medication ?Instructions ?Recorded ?Confirmed ?Last Taken ?Type alprazolam 0.5 mg tablet 0.5 mg PO Q4-6H PRN Anxiety 04/27/19 02/03/22 Unknown History amitriptyline 50 mg tablet 50 mg PO DAILY 04/27/19 02/03/22 Unknown History fluoxetine 20 mg capsule 20 mg PO DAILY 04/27/19 02/03/22 Unknown History naloxone 4 mg/actuation nasal 1 spray intranasal PRN PRN Opioid 04/27/19 02/03/22 Unknown History spray (Narcan) Overdose propranolol 10 mg tablet 10 mg PO DAILY 04/27/19 02/03/22 Unknown History quetiapine 300 mg tablet 300 mg PO HS 04/27/19 02/03/22 Unknown History Allergies Allergy/AdvReac Type Severity Reaction Status Date / Time No Known Allergies Allergy Verified 09/26/24 07:25 Review of Systems 2 Review of Systems: All systems reviewed & are unremarkable except as noted in HPI and below PMFSH Past Medical History Medical History Toothache UTI (urinary tract infection) Abdominal pain Anxiety Insomnia Exam 2 Narrative: GENERAL APPEARANCE: WELL-DEVELOPED, WELL-NOURISHED, RESTLESS SKIN: NORMAL COLOR HEAD: NORMOCEPHALIC, NONTRAUMATIC EYES: CLEAR CONJUNCTIVA ENT: OROPHARYNX NORMAL, EARS NORMAL, NOSE NORMAL NECK: SUPPLE, NONTENDER CHEST AND RESPIRATORY: AIRWAY PATENT, NO RESPIRATORY DISTRESS, NO ACCESSORY MUSCLE USE HEART: REGULAR RATE/RHYTHM ABDOMEN: SOFT, DIFFUSE TENDERNESS MAINLY LEFT UPPER QUADRANT, NO RASH, NO BRUISES, NO ORGANOMEGALY, QUIET BOWEL SOUNDS VASCULAR: NORMAL PERIPHERAL PULSES, NORMAL CAPILLARY REFILL. MUSCULOSKELETAL: NORMAL RANGE OF MOTION, NONTENDER BACK NEUROLOGIC: ALERT AND ORIENTED ?3, MOHS SURGEON/GENERAL DERMATOLOGIST IS NORMAL TESTED, NO GROSS MOTOR DEFICIT Course Vital Signs Vital signs: Vital Signs Temperature 36.6 C 10/09/24 20:44 Pulse Rate 90 10/09/24 20:44 Respiratory Rate 17 10/09/24 20:44 Blood Pressure 117/87 10/09/24 20:44 Pulse Oximetry 95 10/09/24 20:44 Oxygen Delivery Room Air 10/09/24 20:44 Temperature 36.6 C 10/09/24 20:44 Pulse Rate 79 10/09/24 23:22 Respiratory Rate 18 10/09/24 23:22 Blood Pressure 167/84 H 10/09/24 23:22 Pulse Oximetry 94 10/09/24 23:22 Oxygen Delivery Room Air 10/09/24 23:22 MDM - SOB/Dyspnea MDM Narrative Medical decision making narrative: PATIENT CAME WITH LEFT LOWER CHEST AND LEFT UPPER QUADRANT PAIN STARTED 2 HOURS PRIOR TO ARRIVAL, SHORTNESS OF BREATH OFTEN ON FOR AT LEAST 2 MONTHS. VITAL SIGNS ARE STABLE PHYSICAL EXAMINATION SHOWING RESTLESS PATIENT WITH ABDOMINAL TENDERNESS DIFFERENTIAL DIAGNOSIS INCLUDE ANXIETY LIKE SYMPTOMS, PULMONARY EMBOLISM, PNEUMONIA, PLEURAL EFFUSION, SPLENIC INFARCTION, COLITIS, DIVERTICULITIS, CONSTIPATION, URINARY TRACT INFECTION, KIDNEY STONE BLOOD WORKUP TODAY INCLUDES CBC, CMP, TROPONIN, PROBNP SHOWED CT CHEST ABDOMEN PELVIS WITH IV CONTRAST SHOWED ENTERITIS, MULTIFOCAL PNEUMONIA ADMIT TO HOSPITALIST DIAGNOSIS MULTIFOCAL PNEUMONIA, ENTERITIS. PATIENT BEEN ON DOXYCYCLINE , LEVAQUIN AND BACTRIM FOR THE LAST FEW WEEKS WITHOUT ANY IMPROVEMENT. Differential Diagnosis Differential diagnosis: Likely other ( ABOVE) Medical Records Attestation: I reviewed the patient's medical records. Lab Data Attestation: I reviewed the patient's lab results. 10/09/24 21:24 10/09/24 21:24 Labs: Lab Results 10/09/24 10/09/24 Range/Units 21:00 21:24 WBC 18.3 H (4.8-10.8) K/mm3 RBC 4.05 L (4.20-5.40) M/mm3 Hgb 11.6 L (12.0-15.0) g/dL Hct 36.0 (35.0-49.0) % MCV 88.9 (78.0-102.0) fL MCH 28.6 (27.0-31.0) pg MCHC 32.2 (32-36) g/dL RDW 16.0 H (11.6-14.4) % Plt Count 424 H (150-420) K/mm3 MPV 9.6 (9.2-11.8) fl Immature Gran % (Auto) 0.6 H (0.0-0.0) % Neut % (Auto) 78.6 H (50.0-70.0) % Lymph % (Auto) 14.6 L (18.0-42.0) % Lee % (Auto) 5.6 (2.0-11.0) % Eos % (Auto) 0.3 L (1.0-6.0) % Baso % (Auto) 0.3 (0.0-1.0) % Lymph # (Auto) 2.66 (1.10-4.50) K/mm3 Lee # (Auto) 1.03 H (0.10-0.90) K/mm3 Eos # (Auto) 0.05 (0.02-0.50) K/mm3 Baso # (Auto) 0.05 (0.00-0.10) K/mm3 Abs Immat Gran (auto) 0.11 H (0.00-0.00) K/mm3 Absolute Neuts (auto) 14.36 H (1.70-7.20) K/mm3 Absolute Nucleated RBC 0.00 (0.00-0.00) K/mm3 Nucleated RBC % 0.0 (0-0.0) % Sodium 137 (136-145) mmol/L Potassium 3.5 (3.5-5.1) mmol/L Chloride 99 (98-108) mmol/L Carbon Dioxide 26 (21-32) mmol/L Anion Gap 12 (4-12) mmol/L BUN 5 L (7-18) mg/dL Creatinine 0.77 (0.55-1.02) mg/dL Estim Creat Clear Calc 102 ml/min Estimated GFR > 60 (59 - ) Glucose 110 H (70-99) mg/dL Calculated Osmolality 282 L (285-295) mOsm/kg Calcium 9.0 (8.5-10.1) mg/dL Total Bilirubin 0.5 (0.00-1.00) mg/dL AST 30 (15-37) U/L ALT 12 L (14-59) U/L Alkaline Phosphatase 93 (46-116) U/L Troponin I 8.3 (0.00-60.4) ng/L NT-Pro-B Natriuret Pep 143 H (0-125) pg/mL Total Protein 8.0 (6.4-8.2) g/dL Albumin 3.3 L (3.4-5.0) g/dL Lipase 20 (16-77) U/L Influenza A (RT-PCR) Negative (Negative) Influenza B (RT-PCR) Negative (Negative) SARS-CoV-2 RNA (RT-PCR) Negative (Negative) ABG Data ABG results: 10/09/24 21:30 Puncture Site Left radial ABG pH 7.45 ABG pCO2 36.2 ABG pO2 60.6 L ABG HCO3 24.8 ABG O2 Saturation 92.6 L ABG Base Excess 1.1 Oxyhemoglobin 85.0 L O2 Delivery Device Nasal cannula O2 Liters/Min Not Reportable Imaging Data Radiologist's impression: Impressions Chest X-Ray 10/09/24 21:17 IMPRESSION: Right middle lobe infiltrate. Chest/Abdomen/Pelvis CT 10/09/24 23:14 IMPRESSION: Findings suggesting multifocal pneumonia with mediastinal and hilar lymphadenopathy. Additional findings within the ascending colon suggesting a focal enteritis. Critical Care Time Critical Care Time Critical Care Time: No Discharge Plan Discharge Clinical Impression: Multifocal pneumonia, Enteritis Patient Disposition: Home Condition: Stable Additional Instructions: ADMIT TO HOSPITALIST Patient Language: Serbian Prescriptions: No Action doxycycline hyclate 100 mg tablet 100 mg PO DAILY Qty: 10 0RF prednisone 50 mg tablet 50 mg PO DAILY Qty: 5 0RF quetiapine 300 mg tablet 300 mg PO HS amitriptyline 50 mg tablet 50 mg PO DAILY alprazolam 0.5 mg tablet 0.5 mg PO Q4-6H PRN (Reason: Anxiety) propranolol 10 mg tablet 10 mg PO DAILY fluoxetine 20 mg capsule 20 mg PO DAILY naloxone [Narcan] 4 mg/actuation spray,non-aerosol 1 spray INTRANASAL PRN PRN (Reason: Opioid Overdose) albuterol sulfate [ProAir HFA] 90 mcg/actuation HFA aerosol inhaler 1 puff INHALATION QID PRN (Reason: shortness of breath) Qty: 6.7 0RF sulfamethoxazole-trimethoprim [Bactrim DS] 800-160 mg tablet 1 tablet PO Q12H Qty: 20 0RF ibuprofen 800 mg tablet 800 mg PO TID Qty: 20 0RF omeprazole magnesium [Prilosec OTC] 20 mg tablet,delayed release (DR/EC) 20 mg PO BID Qty: 20 0RF ibuprofen 800 mg tablet 800 mg PO TID Qty: 20 0RF omeprazole 20 mg capsule,delayed release(DR/EC) 20 mg PO BID Qty: 20 0RF clonidine HCl 0.2 mg tablet 0.2 mg PO BID Qty: 10 0RF albuterol sulfate [Ventolin HFA] 90 mcg/actuation HFA aerosol inhaler 2 inh inhalation QID PRN (Reason: shortness of breath or wheezing) Qty: 6.7 0RF levofloxacin 500 mg tablet 500 mg PO DAILY 7 Days Qty: 7 0RF methylprednisolone [Medrol (Yuval)] 4 mg tablets,dose pack See Rx Instructions .ROUTE .COMPLEX Qty: 21 0RF Rx Instructions: orally per package directions Follow-up/Referrals: UNKNOWN,DOCTOR [Non-Staff] -
--- NOTE | 2024-10-09 21:03 | ECG_ITS ---
Test Date: 2024-10-09 21:28:39 Measurements Intervals Trevor Rate: 93 P: 60 DC: 146 QRS: 51 QRSD: 93 T: 27 QT: 373 QTc: 466 Interpretive Statements SINUS RHYTHM MINIMAL ST DEPRESSION [0.025+ mV ST DEPRESSION] Compared to ECG 09/26/2024 07:45:20 NO SIGNIFICANT CHANGE Electronically Signed On 10-10-2024 14:13:03 CDT by Gracie Mae M.D.
[2024-10-09 21:34] LABS: Base Excess ABG 1.1 mmol/L (0-2); HCO3 ABG 24.8 mmol/L (23-29); Modified Allen's Test Pass; Oxygen Saturation ABG 92.6 % (95-97); PCO2 ABG 36.2 mmHg (35-45); PO2 ABG 60.6 mmHg (80-90); Site Drawn LEFT RADIAL; pH ABG 7.45 (7.35-7.45)
[2024-10-09 21:35] LABS: Device NASAL CANNULA
[2024-10-09 21:36] LABS: Basophils Absolute Auto 0.05 K/mm3 (0.00-0.10); Basophils Percent Auto 0.3 % (0.0-1.0); Eosinophils Absolute Auto 0.05 K/mm3 (0.02-0.50); Eosinophils Percent Auto 0.3 % (1.0-6.0); Hemoglobin 11.6 g/dL (12.0-15.0); Immature Granulocyte Absolute 0.11 K/mm3 (0.00-0.00); Immature Granulocyte Percent A 0.6 % (0.0-0.0); Lymphocytes Absolute Auto 2.66 K/mm3 (1.10-4.50); Lymphocytes Percent Auto 14.6 % (18.0-42.0); Mean Corpuscular HGB Conc 32.2 g/dL (32-36); Mean Corpuscular Hemoglobin 28.6 pg (27.0-31.0); Mean Corpuscular Volume 88.9 fL (78.0-102.0); Mean Platelet Volume 9.6 fl (9.2-11.8); Monocytes Absolute Auto 1.03 K/mm3 (0.10-0.90); Monocytes Percent Auto 5.6 % (2.0-11.0); Neutrophils Absolute Auto 14.36 K/mm3 (1.70-7.20); Neutrophils Percent Auto 78.6 % (50.0-70.0); Platelet Count Result 424 K/mm3 (150-420); Red Blood Count 4.05 M/mm3 (4.20-5.40); White Blood Count 18.3 K/mm3 (4.8-10.8)
[2024-10-09 21:38] LABS: Influenza A QL RT-PCR Negative (Negative); Influenza B QL RT-PCR Negative (Negative); SARS-CoV-2 RNA PCR Negative (Negative)
[2024-10-09] MEDS: LORazepam INJ (*CRX) 2 MG/ML VIAL 1 MG IV PUSH (21:45)
[2024-10-09 21:59] LABS: Alanine Aminotransferase 12 U/L (14-59); Albumin Level 3.3 g/dL (3.4-5.0); Alkaline Phosphatase 93 U/L (46-116); Anion Gap 12 mmol/L (4-12); Aspartate Amino Transferase 30 U/L (15-37); Bilirubin,Total 0.5 mg/dL (0.00-1.00); Blood Urea Nitrogen 5 mg/dL (7-18); Carbon Dioxide 26 mmol/L (21-32); Chloride 99 mmol/L (98-108); Estimated CRCL calculation 102 ml/min; Estimated Glomerular Filt Rate > 60; Glucose 110 mg/dL (70-99); Lipase 20 U/L (16-77); NT Pro B Type Natriuretic Pept 143 pg/mL (0-125); Osmolality Calculated 282 mOsm/kg (285-295); Potassium 3.5 mmol/L (3.5-5.1); Sodium 137 mmol/L (136-145); Troponin I 8.3 ng/L (0.00-60.4)
--- NOTE | 2024-10-09 22:55 | PC.NURSE ---
Pt resting in room on her phone, no c/o at this time, awaiting CT scan report and results.
--- NOTE | 2024-10-09 23:22 | PC.NURSE ---
Pt updated on status report and still waiting for CT results. Pt VSS, continuing to monitor, POC discussed w/ pt.
[2024-10-10] VITALS (12 sets, daily range): BP systolic 140–166; BP diastolic 68–84; PULSE 72–85; RESP 16–20; TEMP 36.1–36.7; O2SAT 94–98; BMI 46.4
--- NOTE | 2024-10-10 00:07 | PC.NURSE ---
Call placed to Floor for admit to Rm 209. Report given to BETZY Mcgovern
[2024-10-10] MEDS: methylPREDNISolone SOD SUCC 125 MG VIAL 60 MG IV PUSH ×3 (00:30→16:21)
[2024-10-10] MEDS: AZITHROMYCIN 500 MG/NS 250 ML 500 MG/250 ML BAG 250 MG IVPB (00:32)
--- NOTE | 2024-10-10 00:37 | ADMGEN ---
This patient, Daria Edwards, was admitted to 2nd Floor Room 209-1. Patient oriented to hospital policies and general routines including ID bracelet, bed and alarms, visiting hours, pain management, procedures, bathroom and other care routines, personal items, smoking policy, room service/diet, and visiting hours. Information on how to activate the Rapid Response Team has been discussed. Patient are encouraged to report perceived risks to care and to ask questions if they do not understand what they are told or what they should do.
[2024-10-10] MEDS: IPRATROPIUM 0.5 MG/ALBUTEROL SULFATE 2.5 MG AMPUL.NEB 3 ML INHALATION ×4 (00:58→17:03)
[2024-10-10] MEDS: QUEtiapine FUMARATE 100 MG TABLET 300 MG PO (01:41)
[2024-10-10] MEDS: ACETAMINOPHEN 325 MG TABLET 650 MG PO ×3 (01:49→22:21)
--- NOTE | 2024-10-10 06:51 | PC.NURSE ---
Spoke with patient, states she is having continued pain to left chest area d/t cough that is worse with movement. Is requesting Ibuprofen and Flexeril. Patient informs nurse, that she has hx of opioid addiction, she is on suboxone, and will have family bring doses in from home.
--- OUTSIDE RECORDS SUMMARY | 2024-10-10 07:36 | XMS_ITS | Encounter Summary ---
Author Organization [facility] Address [facility] [place] [address] Care Team Providers Care Distribution Systems Superintendent Name Role Phone Diana Villalobos NP Primary Care Provider [phone] Andreas Thomas MD Primary Care Provider [phone] Brina Lopez STRUCTURAL STEEL DETAILER Unavailable [phone] Diana Villalobos NP Unavailable [phone] Encounter Details Date Type Department Care Team (Late st Contact Info) Description 03/09/2022 Hospital Follow-up Call [facility] [address] [place] [address] Kristi Urias RN Social History Tobacco Use Types Packs/Day Years Used Date Smoking Tobacco: Every Day Cigarettes Smokeless Tobacco: Never Alcohol Use Standard Drinks/Week Comments Not Currently 0 (1 standard drink = 0.6 oz pur e alcohol) Comments Unknown Sex and Gender Information Value Date Recorded Sex Assigned at Not on file Legal Sex Female 5:46 PM DATA GOVERNANCE ANALYST Gender Identity Not on file Sexual Orientation [...] on filedocumented in this encounter Care Teams Distribution Systems Superintendent Relationship Specialty Start Date End Date Diana Villalobos NP [address] [phone] PCP - General NURSE PRACTITIONER 03/04/22 07/07/22 Andreas Thomas MD [address] [facility] [address] [place] [phone] PCP - General FAMILY PRACTICE 07/08/22 Brina Lopez NP [address] [facility] [address] [place] [phone] Nurse Practitioner Family 07/08/22 Diana Villalobos NP [address] [phone] NURSE PRACTITIONER 07/08/22 documented as of this encounter
--- OUTSIDE RECORDS SUMMARY | 2024-10-10 07:36 | XMS_ITS | Clinical Summary ---
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 [address] [place] [address] Department of Pathology Pathology Report CERVICAL/VAGINAL PAP SMEAR REPORT Name: DAVID THOMPSON Age: 11 1980 (Age: 41) Location: [facility] Sex: F Collected Date: 12/26/2021 [facility] #: [id number] Date Received: 12/30/2021 Date Reported: 01/01/2022 Provider: FELICIANO LOPEZ CHIEF ESTIMATOR INTERPRETATION CERVICAL/ENDOCERVI AMISH: SATISFACTORY FOR EVALUATION. ENDOCERVICAL/TRANS [...] is not effective in detecting cervical adenocarcinoma. [facility] 12/26/2021 8:40 AM CDT 12/30/2021 8:40 AM CDT Comment:CERVICAL/ENDOCERVICA L Feliciano Doshi MD PATHOLOGY/CYTOLOGY ORDERABLES Final Result [facility] [address] [id number], from Last 3 Months or Most Recently Relevant to Health Maintenance Insurance [employer] [facility] Advance Directives * Full Code (Latest Code Status on File) Date Activated Date Inactivated Comments 03/03/2022 4:50 PM 03/06/2022 2:11 PM Care Teams Electronics Lead Relationship Specialty Start Date End Date Andreas Thomas MD PCP - General FAMILY PRACTICE 07/08/22 Brina Lopez NP [address] [facility] [address] [place] [address] Nurse Practitioner [facility] 07/08/22 Diana Villalobos NP [address] [facility] [address] [place] [address] NURSE PRACTITIONER 07/08/22
--- OUTSIDE RECORDS SUMMARY | 2024-10-10 07:36 | XMS_ITS | Encounter Summary ---
Author Organization [facility] Address [address] [place] [address] Care Team Providers Care Legal Entity Controller Name Role Phone Brina Lopez WIRELESS DEVELOPMENT MANAGER Primary Care Provider [phone] Diana Villalobos NP Primary Care Provider [phone] Andreas Thomas MD Primary Care Provider [phone] Brina Lopez WIRELESS DEVELOPMENT MANAGER Unavailable [phone] Diana Villalobos NP Unavailable [phone] Encounter Details Date Type Department Care Team (Late st Contact Info) Description 11/12/2018 Abstract [facility] CONVERSION [address] [place] [address] , Generic Conversion, Social History Tobacco Use Types Packs/Day Years Used Date Smoking Tobacco: Never Assessed Comments Unknown Sex and Gender Information Value Date Recorded Sex Assigned at Not on file 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 Gender Identity Not on file Sexual Orientation Not on file documented as of this encounter Plan of Treatment Not on file documented as of this encounter Visit Diagnoses Not on filedocumented in this encounter Care Teams Legal Entity Controller Relationship Specialty Start Date End Date Brina Lopez NP PCP - General Nurse Practitioner Family 02/02/20 912/26 Diana Villalobos NP [address] [phone] PCP - General NURSE PRACTITIONER 03/04/22 07/07/22 Andreas Thomas MD [address] [phone] PCP - General FAMILY PRACTICE 07/08/22 Brina Lopez NP [address] [phone] Nurse Practitioner Family 07/08/22 Diana Villalobos NP [address] [phone] NURSE PRACTITIONER 07/08/22 documented as of this encounter
[2024-10-10] MEDS: UMECLIDINIUM/VILANTEROL 62.5-25 MCG ELLIPTA 1 PUFF INHALATION (08:31)
[2024-10-10] MEDS: ARIPiprazole 2 MG TABLET PO (08:33)
[2024-10-10] MEDS: amLODIPine BESYLATE 5 MG TABLET 10 MG PO (08:34)
[2024-10-10] MEDS: FAMOTIDINE 20 MG TABLET PO (08:34)
--- NOTE | 2024-10-10 08:36 | PM.IMHP ---
H&P: HPI History of Present Illness Date/Time: 10/10/24 08:36 Chief Complaint: Dyspnea on exertion Narrative: This is a 44 year old female patient with a history of COPD, HTN, anxiety, depression is admitted to hospital with multifocal pneumonia and failure of outpatient treatment. Patient was seen in ER in August with progressive dyspnea on exertion getting worse over a couple of months. Patient does smoke cigarretts and marijuana. She reports she sees a mixer operator vacuum pan salt for COPD and this provider as well as [facility]) write her prescriptions but she does not have a primary care provider. She was going to shredder picker new patient paperwork for Dr. Uriarte when she came to ER instead. Back in August patient was treated with Levaquin for 7 days as well as albuterol inhaler and Medrol elaine. Patient returned to ER a month later in September and was again diagnosed with pneumonia and treated with doxycycline and prednisone. Patient reports that her symptoms got mildly better then returned each time. Imaging continues to show ground glass changes so she was admitted overnight for IV antibiotics for failure of outpatient treatment. My own review of imaging previously including Radiology reads and I have increased concern for pulmonary edema, potentially CHF. Echocardiogram will be ordered. Patient instructed not to smoke. 3-5 minutes of smoking cessation discussion included on this visit. Review of Systems Review of Systems: All systems reviewed & are unremarkable except as noted in HPI and below PMFSH Past Medical History Medical History (Updated 10/10/24 @ 13:22 by Kelton Sullivan APRN) Toothache UTI (urinary tract infection) Abdominal pain Anxiety Insomnia Social History Social History Smoking packs per day: 1 Smoking cigarettes per day: 20.0 Smoking status: Current every day smoker Tobacco type: cigarettes Second hand tobacco smoke exposure: No Alcohol intake: never Substance use: current Substance use type: marijuana Last use: 10/07/24 Do You Feel Safe in your Home?: Yes Lack of Transportation: No Lack of Food: Never True Current Housing: I Have Housing Concerned About Future Housing: No Difficulty Paying Gas/Electric Bills: No Difficulty Paying for Meds: No Currently Unemployed: No Education: High School Diploma/GED Difficulty w/ Childcare or Family Care: No Spiritual care concerns: No Meds Home Medications and Allergies Home Medications ?Medication ?Instructions ?Recorded ?Confirmed ?Type fluoxetine 20 mg capsule 20 mg PO DAILY 04/27/19 10/10/24 History quetiapine 300 mg tablet 300 mg PO HS 04/27/19 10/10/24 History albuterol sulfate 90 mcg/actuation 2 inh inhalation QID PRN shortness 08/25/24 10/10/24 Rx aerosol inhaler (Ventolin HFA) of breath or wheezing #6.7 grams amlodipine 10 mg tablet 10 mg PO .COMPLEX 10/10/24 10/10/24 History aripiprazole 2 mg tablet 2 mg PO .COMPLEX 10/10/24 10/10/24 History doxepin 10 mg capsule 20 mg PO .COMPLEX 10/10/24 10/10/24 History famotidine 20 mg tablet 20 mg PO .COMPLEX 10/10/24 10/10/24 History lisinopril 40 mg tablet 40 mg PO .COMPLEX 10/10/24 10/10/24 History lorazepam 1 mg tablet 2 mg PO .COMPLEX 10/10/24 10/10/24 History umeclidinium 62.5 mcg-vilanterol 1 inh inhalation .COMPLEX PRN sob 10/10/24 10/10/24 History 25 mcg/actuation powdr for inhalation (Anoro Ellipta) Allergies Allergy/AdvReac Type Severity Reaction Status Date / Time No Known Allergies Allergy Verified 09/26/24 07:25 Vital Signs Vital Signs - 24 hr 10/09/24 20:44 10/09/24 20:55 10/09/24 21:00 Temperature 36.6 C Pulse Rate 90 95 Respiratory Rate 17 16 Blood Pressure 117/87 Pulse Oximetry 95 96 95 Oxygen Delivery Room Air Room Air 10/09/24 21:00 10/09/24 21:00 10/09/24 21:01 Temperature Pulse Rate 94 83 84 Respiratory Rate 14 14 Blood Pressure 181/76 H Pulse Oximetry 95 95 Oxygen Delivery 10/09/24 21:13 10/09/24 21:15 10/09/24 21:16 Temperature Pulse Rate 89 92 91 Respiratory Rate 15 17 18 Blood Pressure 188/79 H 172/72 H Pulse Oximetry 95 96 96 Oxygen Delivery 10/09/24 21:30 10/09/24 21:49 10/09/24 23:22 Temperature Pulse Rate 88 69 79 Respiratory Rate 16 19 18 Blood Pressure 156/86 H 167/84 H Pulse Oximetry 97 94 94 Oxygen Delivery Room Air 10/10/24 00:00 10/10/24 00:23 10/10/24 01:29 Temperature 36.3 C L 36.7 C Pulse Rate 74 78 78 Respiratory Rate 18 20 20 Blood Pressure 157/74 H 166/84 H Pulse Oximetry 97 95 98 Oxygen Delivery Room Air Room Air Room Air 10/10/24 05:32 10/10/24 05:42 Temperature Pulse Rate 72 77 Respiratory Rate 16 16 Blood Pressure Pulse Oximetry 95 98 Oxygen Delivery Exam Narrative: GENERAL APPEARANCE: WELL-DEVELOPED, WELL-NOURISHED, RESTLESS/ANXIOUS SKIN: NORMAL COLOR HEAD: NORMOCEPHALIC, NONTRAUMATIC EYES: PERRL NECK: SUPPLE, NONTENDER CHEST AND RESPIRATORY: AIRWAY PATENT, NO RESPIRATORY DISTRESS, NO ACCESSORY MUSCLE USE, NO WHEEZING HEART: REGULAR RATE/RHYTHM ABDOMEN: SOFT, DIFFUSE TENDERNESS MAINLY LEFT UPPER QUADRANT VASCULAR: NORMAL PERIPHERAL PULSES, NORMAL CAPILLARY REFILL. MUSCULOSKELETAL: NORMAL RANGE OF MOTION, NONTENDER BACK NEUROLOGIC: ALERT AND ORIENTED ?3, AUTOMOTIVE ARTIST IS NORMAL TESTED, NO GROSS MOTOR DEFICIT H&P: Results Labs Labs: Short CBC 10/09/24 Range/Units 21:24 WBC 18.3 H (4.8-10.8) K/mm3 Hgb 11.6 L (12.0-15.0) g/dL Hct 36.0 (35.0-49.0) % Plt Count 424 H (150-420) K/mm3 BMP 10/09/24 21:24 Sodium 137 Potassium 3.5 Chloride 99 Carbon Dioxide 26 BUN 5 L Creatinine 0.77 Glucose 110 H Calcium 9.0 Cardiac Enzymes 10/09/24 Range/Units 21:24 Troponin I 8.3 (0.00-60.4) ng/L Liver Function 10/09/24 Range/Units 21:24 Total Bilirubin 0.5 (0.00-1.00) mg/dL AST 30 (15-37) U/L ALT 12 L (14-59) U/L Alkaline Phosphatase 93 (46-116) U/L Albumin 3.3 L (3.4-5.0) g/dL Pulse Oximetry SpO2 results: 94-98% on room air Attestation: I personally reviewed and interpreted this pulse oximetry as follows: Interpretation: no need for supplemental oxygenation at this time ECG Attestation: I personally reviewed and interpreted this ECG as follows: ECG completion date: 10/09/24 ECG completion time: 21:28 Prior ECG tracings: available for review Interpretation: sinus rhythm rate of 93 NJ interval 146 QRS duration 93 QTC 466 QRS axis 51, minimal widespread ST segment depression, no STEMI Imaging CT scan - chest: Radiologist's impression: CLINICAL INDICATION: shortness of breath with bloating COMPARISON: 08/25/2024 and 12/13/2021. TECHNIQUE: An enhanced CT of the chest, abdomen and pelvis was performed utilizing multislice spiral technique reconstructed at 5 mm slice thickness. Coronal and sagittal reconstructions were performed. This CT examination was performed utilizing dose reduction techniques. DLP: 1802 mGy-cm FINDINGS/OBSERVATIONS: Lung: Patchy groundglass opacification detected bilaterally, suggesting multifocal pneumonia. The heart is borderline enlarged, without pericardial effusion. Mediastinum: Scattered mediastinal lymph nodes are identified, the largest within the aortopulmonary window measuring 14 mm in short axis dimension. Bilateral hilar lymphadenopathy is also present. The largest lymph node on the left measuring 18 mm in short axis dimension. The largest lymph node the right measuring 20 mm in short axis dimension. No additional pathologically enlarged or morphologically suspicious lymph nodes are identified within the mediastinum, bilateral axilla, or within the soft tissues of the anterior chest wall. Soft tissues of the chest: Unremarkable. Bones of the chest: No acute fracture. No lytic or blastic lesions are identified. Liver: The liver enhances homogeneously and is enlarged measuring 20 cm in longitudinal dimension. Gallbladder and biliary system: The gallbladder is surgically absent. Pancreas: The pancreas enhances homogeneously, without ductal dilatation. Spleen: Kidneys: The bilateral kidneys enhance symmetrically without hydronephrosis or renal calculi. Adrenal glands: Redemonstration of enlargement of the left adrenal gland, which demonstrates soft tissue attenuation measuring 3.4 x 3.3 x 3.4 cm, unchanged from previous examination dated 12/13/2021. The right adrenal gland is unremarkable. Gastrointestinal tract: Mural thickening and edema is identified within the cecum and ascending colon with trace surrounding inflammatory change, findings suggesting a diffuse enteritis. Fecal stasis within the rectosigmoid colon. Distension of the rectum by aerated stool. Appendix: Surgically absent. Vasculature: No calcified atherosclerotic disease is present. No aneurysmal dilatation. Lymph nodes: Scattered nonpathologically enlarged lymph nodes within the root of the mesentery and deep in the pelvis, a nonspecific finding. Pelvic structures: The bladder is minimally distended and otherwise unremarkable. The uterus is either surgically absent or atrophic Body wall and musculoskeletal: Small fat-containing umbilical hernia. No significant degenerative disease within the thoracic, or lumbosacral spines. IMPRESSION: Findings suggesting multifocal pneumonia with mediastinal and hilar lymphadenopathy. Additional findings within the ascending colon suggesting a focal enteritis. Reviewed, dictated and finalized at location A. Please be advised this is a medical document. It is intended for [id number] communication. It is written in medical language and may contain unfamiliar abbreviations or verbiage. Medical documents are intended to carry relevant information, facts as evident, and the clinical opinion of the practitioner at the time of the encounter. This report may have been done utilizing a voice recognition system. Attempts have been made to correct errors. However, there may be uncorrected grammatical, spelling, and recognition errors present. The file time of this note does not necessarily represent the time of service. Chest x-ray: Radiologist's impression: CHEST RADIOGRAPH, PA AND LATERAL CLINICAL HISTORY: SOB and walking pneumonia x2 weeks . COMPARISON: 09/26/2024 TECHNIQUE: PA and lateral views of the chest. FINDINGS The cardiomediastinal silhouette is unremarkable. Increased opacification within the right middle lobe for which an infiltrate is suspected. The remainder of the lungs are clear IMPRESSION: Right middle lobe infiltrate. Reviewed, dictated and finalized at location A. Assessment and Plan Assessment and plan (1) Multifocal pneumonia: Code(s): J18.9 - Pneumonia, unspecified organism Status: Acute Assessment and Plan: -Multiple visits for progressive dyspnea on exertion over the past couple months. -Prior imaging appeared ground-glass changes consistent with atypical pneumonia vs pulmonary edema -XR on this visit right middle lobe pneumonia -CTA negative for PE but patchy groundglass opacification consistent with multilobar pneumonia -Echocardiogram ordered as concern for CHF as potential given prior and current findings as well as subjective history and risk factors -Patient reports significant auto-diuresis since admission to hospital -IV Rocephin, changed azithromycin to oral -Expanded testing ordered including Legionella/Pneumococcal antigens, Mycoplasma testing, Chlam. pneumoniae, expanded viral panel -MRSA swab was negative (2) Anxiety: Code(s): F41.9 - Anxiety disorder, unspecified Status: Acute Assessment and Plan: -Continue home medications including Suboxone -Repeated testing has made patient more nervous (3) Insomnia: Code(s): G47.00 - Insomnia, unspecified Status: Acute Assessment and Plan: -Ativan at night to help patient fall asleep (4) Enteritis: Code(s): K52.9 - Noninfective gastroenteritis and colitis, unspecified Status: Acute Assessment and Plan: -Imaging findings of colitis -Patient reports loose stools -Send C-diff testing Plan -Admit for IV antibiotics -Failure of outpatient management noted -Oxygen PRN -Further diagnostics needed for pneumonia -Patient will need Echocardiogram as well (ordered but may need as outpatient after discharge) Quality VTE Prophylaxis VTE prophylaxis: pharmacologic ordered (Lovenox) Time spent on this admission 95 minutes Hospitalist MIPS Advance Care Plan I have confirmed that the patient's Advanced Care Plan is present, code status is documented, or surrogate decision maker is listed in patient medical record.: Yes Medication Reconciliation I have utilized all available resources to obtain, update and review the patients current medications (includes all prescriptions, OTC, herbals, cannabis, and nutritional supplements).: Yes
[2024-10-10] MEDS: lisinopriL 20 MG TABLET 40 MG PO (08:37)
[2024-10-10] MEDS: CYCLOBENZAPRINE HCL 10 MG TABLET PO (11:50)
[2024-10-10] MEDS: SERTRALINE HCL 50 MG TABLET 100 MG PO (11:53)
--- NOTE | 2024-10-10 13:24 | ECHO_ITS ---
Patient Info Name: Daria Edwards Age: 44 years : 1980 Gender: Female Ht: 61 in Wt: 266 lbs BSA: 2.36 m2 HR: 85 bpm BP: 166 / 84 mmHg Heart Rhythm: Sinus Rhythm Technical Quality: Fair Exam Date: 10/10/2024 1:46 PM Exam Location: Echo Lab Patient Status: Inpatient Admit Date: 10/09/2024 Staff Ordering Physician: Kelton Sullivan APRN Public Works Technician: Yanique Gore RDCS Attending Provider: Steve Hinds MD Referring Physician: Nate CARY; Exam Type: CA echo doppler color flow Study Info Indications - Pulmonary edema Complete two-dimensional, color flow and Doppler transthoracic echocardiogram is performed. Summary 1. Complete two-dimensional, color flow and Doppler transthoracic echocardiogram is performed. 2. Left ventricular chamber dimension is normal. 3. Left ventricular systolic function is normal, estimated at 65-70%. 4. The left ventricular diastolic function is abnormal. 5. E/e' 11 is mildly elevated. 6. Left atrial chamber dimension is moderately enlarged. 7. Right atrial chamber dimension is mildly enlarged. 8. There is mild mitral valve regurgitation. 9. There is trace tricuspid valve regurgitation. 10. Mild pulmonary hypertension, estimated pulmonary arterial systolic pressure is 43 mmHg. Left Ventricle E/e' 11 is mildly elevated. Left ventricular chamber dimension is normal. Left ventricular systolic function is normal, estimated at 65-70%. The left ventricular diastolic function is abnormal. Right Ventricle Right ventricular systolic function is normal and with normal TAPSE 2.8 cm. Right ventricular chamber dimension is normal. Left Atria Left atrial chamber dimension is moderately enlarged. Right Atria Right atrial chamber dimension is mildly enlarged. Aortic Valve The aortic valve is not well visualized. Cannot determine number of aortic valve leaflets. There is no aortic valve stenosis based on valve area and gradients. There is no aortic valve regurgitation. Pulmonic Valve There is no pulmonic regurgitation. Mitral Valve There is no mitral valve stenosis. There is mild mitral valve regurgitation. Tricuspid Valve There is trace tricuspid valve regurgitation. Mild pulmonary hypertension, estimated pulmonary arterial systolic pressure is 43 mmHg. Pericardium/Pleural There is no pericardial effusion. Inferior Vena Cava Normal inferior vena cava with >50% collapse upon inspiration consistent with normal right atrial pressure, 5 mmHg. Aorta The aortic root size at the sinus of Valsalva is normal. Left Ventricular Outflow Tract Name Value Normal LVOT 2D LVOT Diameter 2.0 cm LVOT Doppler LVOT Peak Velocity 167 cm/s LVOT Peak Gradient 11 mmHg LVOT Mean Gradient 5 mmHg LVOT VTI 35 cm LVOT VTI/AV VTI Ratio 0.8 LVOT Stroke Volume 104 ml LVOT CO 19.4 l/min LVOT CI 8.2 l/min/m2 Pulmonic Valve Name Value Normal RVOT Doppler RVOT Peak Gradient 4 mmHg PV Doppler PV Peak Velocity 148 cm/s PV Peak Gradient 9 mmHg Mitral Valve Name Value Normal MV Doppler MV Decel [place] 653 cm/s2 MV PHT 57 ms MV Area (PHT) 3.9 cm2 4.0-5.0 MV Diastolic Function MV E Peak Velocity 128 cm/s MV A Peak Velocity 110 cm/s MV E/A 1.2 MV Decel Time 196 ms MV Annular TDI MV Septal e' Velocity 11.3 cm/s >=8.0 MV E/e' (Septal) 11.4 <=8.0 MV Lateral e' Velocity 10.1 cm/s >=10.0 MV E/e' (Lateral) 12.7 <=8.0 MV e' Average 10.72 MV E/e' (Average) 12.0 Tricuspid Valve Name Value Normal TV Regurgitation Doppler TR Peak Velocity 309 cm/s TR Peak Gradient 38 mmHg Estimated PAP/RSVP RA Pressure 5 mmHg <=5 PA Systolic Pressure 43 mmHg <36 RV Systolic Pressure 43 mmHg <36 TV Annular TDI TV Lateral Kaylin s' Velocity 21.0 cm/s 9.5-18.7 Aortic Valve Name Value Normal AV Doppler AV Peak Velocity 224 cm/s AV Peak Gradient 20 mmHg AV Mean Gradient 9 mmHg AV VTI 46 cm AV Area (Cont Eq VTI) 2.3 cm2 >=3.0 AV Area (Cont Eq Quentin) 2.3 cm2 AV V1/V2 Ratio 0.75 AV Regurgitation 2D LVOT Area 3.0 cm2 Ventricles Name Value Normal LV Dimensions 2D/MM IVS Diastolic Thickness (2D) 1.1 cm 0.6-1.0 LVID Diastole (2D) 5.2 cm 3.8-5.2 LVIW Diastolic Thickness (2D) 1.2 cm 0.6-0.9 LVID Systole (2D) 3.2 cm 2.2-3.5 LVOT Diameter 2.0 cm LV Mass (2D Cubed) 236.91 g 67.00-162.00 LV Mass Index (2D Cubed) 100 g/m2 43-95 Relative Wall Thickness (2D) 0.47 LV Fractional Shortening/Ejection Fraction 2D/MM LV Fractional Shortening (2D) 39 % 27-45 LV EF (2D Teicholz) 68 % 54-74 LV Diastolic Volume (4C MOD) 130 ml LV EF (4C MOD) 75 % LV Diastolic Volume (2C MOD) 159 ml LV EF (2C MOD) 60 % LV Diastolic Volume (BP MOD) 144 ml 46-106 LV Diastolic Volume Index (BP MOD) 61 ml/m2 29-61 LV Systolic Volume (BP MOD) 46 ml 14-42 LV Systolic Volume Index (BP MOD) 20 ml/m2 8-24 LV EF (BP MOD) 68 % 54-74 LV Diastolic Length (4C) 8.7 cm LV Systolic Length (4C) 6.4 cm LV Stroke Volume (4C MOD) 94 ml Atria Name Value Normal LA Dimensions LA Volume (4C A-L) 76 ml LA Volume (BP A-L) 94 ml RA Dimensions RA Area (4C) 20.2 cm2 <=18.0 Report Signatures
[2024-10-10 14:13] LABS: CRP 7.1 mg/dL (0.0-0.9)
[2024-10-10 15:03] LABS: Erythrocyte Sedimentation Rate 50 mm/hr (0-15)
[2024-10-10] MEDS: POTASSIUM CHLORIDE 20 MEQ ER TABLET 40 MEQ PO (15:09)
[2024-10-10] MEDS: AZITHROMYCIN 250 MG TABLET 500 MG PO (16:22)
[2024-10-10 16:55] LABS: Basophils Absolute Auto 0.01 K/mm3 (0.00-0.10); Basophils Percent Auto 0.1 % (0.0-1.0); Eosinophils Absolute Auto 0.01 K/mm3 (0.02-0.50); Eosinophils Percent Auto 0.1 % (1.0-6.0); Hemoglobin 11.9 g/dL (12.0-15.0); Immature Granulocyte Absolute 0.12 K/mm3 (0.00-0.00); Lymphocytes Absolute Auto 0.91 K/mm3 (1.10-4.50); Lymphocytes Percent Auto 7.6 % (18.0-42.0); Mean Corpuscular HGB Conc 32.2 g/dL (32-36); Mean Corpuscular Hemoglobin 28.2 pg (27.0-31.0); Mean Corpuscular Volume 87.7 fL (78.0-102.0); Mean Platelet Volume 9.8 fl (9.2-11.8); Monocytes Absolute Auto 0.16 K/mm3 (0.10-0.90); Monocytes Percent Auto 1.3 % (2.0-11.0); Neutrophils Absolute Auto 10.75 K/mm3 (1.70-7.20); Neutrophils Percent Auto 89.9 % (50.0-70.0); Platelet Count Result 455 K/mm3 (150-420); Red Blood Count 4.22 M/mm3 (4.20-5.40); Red Cell Distribution Width 16.2 % (11.6-14.4)
[2024-10-10 17:02] LABS: Albumin Level 3.4 g/dL (3.4-5.0); Anion Gap 14 mmol/L (4-12); Blood Urea Nitrogen 5 mg/dL (7-18); Calcium 9.4 mg/dL (8.5-10.1); Carbon Dioxide 24 mmol/L (21-32); Chloride 99 mmol/L (98-108); Estimated CRCL calculation 94 ml/min; Estimated Glomerular Filt Rate > 60; Glucose 206 mg/dL (70-99); Osmolality Calculated 287 mOsm/kg (285-295); Phosphorus 2.6 mg/dL (2.6-4.7); Potassium 3.9 mmol/L (3.5-5.1); Sodium 137 mmol/L (136-145)
[2024-10-10 17:17] LABS: Add Urine Microscopic? NO; Appearance Urine Clear (Clear); Bilirubin Urine Negative (Negative); Blood Urine Negative (Negative); Color Urine Light Yellow (Yellow); Glucose Urine UA Negative (Negative); Ketones Urine Negative (Negative); Leukocyte Esterase Ur Negative LEU/UL (Negative); Nitrate Urine Negative (Negative); Protein Urine Negative (Negative); Specific Grav Ur <= 1.005 (1.010-1.020); Urobilinogen Urine 0.2 mg/dL (0.2-1.0)
[2024-10-10] MEDS: QUEtiapine FUMARATE 100 MG TABLET 200 MG PO (21:33)
[2024-10-10] MEDS: LORazepam (*CRX) 1 MG TABLET 2 MG PO (21:34)
[2024-10-10] MEDS: DOXEPIN HCL 25 MG CAPSULE PO (21:34)
[2024-10-11] VITALS (11 sets, daily range): BP systolic 130–159; BP diastolic 80–91; PULSE 74–104; RESP 16–20; TEMP 36.4–36.6; O2SAT 20–99
[2024-10-11] MEDS: methylPREDNISolone SOD SUCC 125 MG VIAL 60 MG IV PUSH (00:43)
[2024-10-11] MEDS: IPRATROPIUM 0.5 MG/ALBUTEROL SULFATE 2.5 MG AMPUL.NEB 3 ML INHALATION ×5 (00:43→23:59)
[2024-10-11 05:22] LABS: Basophils Absolute Auto 0.02 K/mm3 (0.00-0.10); Basophils Percent Auto 0.1 % (0.0-1.0); Eosinophils Absolute Auto 0.01 K/mm3 (0.02-0.50); Eosinophils Percent Auto 0.1 % (1.0-6.0); Hematocrit 34.7 % (35.0-49.0); Immature Granulocyte Absolute 0.16 K/mm3 (0.00-0.00); Immature Granulocyte Percent A 0.9 % (0.0-0.0); Lymphocytes Absolute Auto 1.41 K/mm3 (1.10-4.50); Lymphocytes Percent Auto 8.3 % (18.0-42.0); Mean Corpuscular HGB Conc 31.7 g/dL (32-36); Mean Corpuscular Volume 88.3 fL (78.0-102.0); Mean Platelet Volume 9.4 fl (9.2-11.8); Monocytes Percent Auto 3.5 % (2.0-11.0); Neutrophils Absolute Auto 14.75 K/mm3 (1.70-7.20); Neutrophils Percent Auto 87.1 % (50.0-70.0); Platelet Count Result 432 K/mm3 (150-420); Red Blood Count 3.93 M/mm3 (4.20-5.40); Red Cell Distribution Width 16.1 % (11.6-14.4)
[2024-10-11 05:36] LABS: Albumin Level 3.1 g/dL (3.4-5.0); Anion Gap 9 mmol/L (4-12); Blood Urea Nitrogen 9 mg/dL (7-18); Calcium 9.2 mg/dL (8.5-10.1); Carbon Dioxide 26 mmol/L (21-32); Chloride 101 mmol/L (98-108); Estimated CRCL calculation 87 ml/min; Estimated Glomerular Filt Rate > 60; Glucose 171 mg/dL (70-99); Osmolality Calculated 284 mOsm/kg (285-295); Phosphorus 3.2 mg/dL (2.6-4.7); Potassium 4.2 mmol/L (3.5-5.1); Sodium 136 mmol/L (136-145)
[2024-10-11 08:50] LABS: Hemoglobin A1C 5.9 % (<5.7)
[2024-10-11] MEDS: amLODIPine BESYLATE 5 MG TABLET 10 MG PO (09:42)
[2024-10-11] MEDS: ARIPiprazole 2 MG TABLET PO (09:43)
[2024-10-11] MEDS: FAMOTIDINE 20 MG TABLET PO (09:43)
[2024-10-11] MEDS: SERTRALINE HCL 50 MG TABLET 100 MG PO (09:43)
[2024-10-11] MEDS: UMECLIDINIUM/VILANTEROL 62.5-25 MCG ELLIPTA 1 PUFF INHALATION (09:44)
[2024-10-11] MEDS: predniSONE 20 MG TABLET 40 MG PO (09:44)
[2024-10-11] MEDS: lisinopriL 20 MG TABLET 40 MG PO (09:44)
[2024-10-11] MEDS: [UNRECOGNIZED DRUG - OTHER] XX (10:08)
[2024-10-11] MEDS: NALOXONE XX (10:08)
[2024-10-11] MEDS: BUPRENORPHINE XX (10:08)
--- NOTE | 2024-10-11 10:11 | PHAR ---
VERIFIED PT.S HOME MEDICATION. BUPRENORPHINE/NALOXONE-8/2MG SUBLINGUAL FILM PLACE 1 FILM BY SUBLINGUAL ROUTE TWO TIMES DAILY. ALLOW TO DISSOLVE SLOWLY IN MOUTH WITHOUT CHEWING OR SWALLOWING.
[2024-10-11 10:43] LABS: MRSA (PCR) NOT DETECTED (NOT DETECTE)
--- NOTE | 2024-10-11 10:56 | P.PNIM_ITS ---
Progress Note: A&P Assessment and Plan (1) Multifocal pneumonia: Code(s): J18.9 - Pneumonia, unspecified organism Status: Acute Assessment and Plan: Multiple visits for progressive dyspnea on exertion over the past couple months. Prior imaging appeared ground-glass changes consistent with atypical pneumonia vs pulmonary edema, XR on this visit right middle lobe pneumonia, CTA negative for PE but patchy groundglass opacification consistent with multilobar pneumonia, Echocardiogram showing LVEF 65-70% with mild pulmonary hypertension * continue Rocephin and oral azithromycin * Expanded testing ordered including Legionella/Pneumococcal antigens, Mycoplasma testing, Chlam. pneumoniae, expanded viral panel * MRSA swab was negative * Bronchodilators. * incentive spirometry while awake. * sputum culture but non-productive cough might not be able to get it * influenza/COVID/RSV negative * respiratory panel pending * WBC bump to 17 however she had been given IV methylprednisone will discontinue (2) Anxiety: Code(s): F41.9 - Anxiety disorder, unspecified Status: Acute Assessment and Plan: * Continue home medications including zoloft * continue Ativan at night (3) Insomnia: Code(s): G47.00 - Insomnia, unspecified Status: Acute Assessment and Plan: * Continue home Ativan and seroquel at night to help patient fall asleep (4) Enteritis: Code(s): K52.9 - Noninfective gastroenteritis and colitis, unspecified Status: Acute Assessment and Plan: Imaging findings of colitis, No further diarrhea -c-diff outstanding Plan Code status: Full code per patient DVT prophylaxis: Lovenox Stress ulcer prophylaxis: Pepcid PT/OT notes: Ambulatory Disposition: patient continues admission to the medical unit for bilateral pneumonia which she had failed oral antibiotic therapy outpatient currently on IV Rocephin and oral azithromycin and remaining on room air. plan for patient to discharge to home when medically stable Time Spent With Patient Time with patient: 15 - 25 minutes Subjective Date/time seen: 10/11/24 10:56 Interval history: Patient is a 44-year-old female admitted for further evaluation and treatment of bilateral vocal pneumonia which had not improved with oral medication outpatient. 10/11/2024: Patient up in chair in no acute distress but still reporting Dyspnea worse with exertion but on RA. Reported feeling feverish and chills overnight but no fever noted. She denied CP N/V and no further diarrhea. Review of Systems Review of Systems: All systems reviewed & are unremarkable except as noted in HPI and below Exam Const: General: comfortable and no acute distress HENMT: Ears: TM's normal bilaterally Face/Nose/Sinus: Normal nares present Mouth: Yes moist mucous membranes Eyes: General: appearance normal, both eyes and all related structures Neck: Neck: supple Resp: Auscultation: diminished lung sounds bilateral in the lower lung kapadia Cardio: Rate: regular rate GI: GI Palp: Yes Soft to palpation Auscultation: normal bowel sounds Skin: General skin exam: normal color and no rashes or lesions noted Wounds: no wounds Neuro: General: gait normal Speech: normal speech Motor exam (neuro): 5/5 motor strength present throughout Sensory Exam: normal sensation Extrem: General: normal to inspection Psych: Mental Status: mental status grossly normal Affect: normal affect Objective Data Vital Signs Vital Signs: Vital Signs - 24 hr 10/10/24 12:50 10/10/24 13:00 10/10/24 16:00 Temperature 97.3 F L Pulse Rate 83 85 84 Respiratory Rate 16 16 18 Blood Pressure 158/74 H Pulse Oximetry 94 98 96 Oxygen Delivery Room Air 10/10/24 17:03 10/10/24 17:12 10/10/24 20:00 Temperature Pulse Rate 82 85 85 Respiratory Rate 16 16 16 Blood Pressure Pulse Oximetry 98 98 94 Oxygen Delivery Room Air 10/11/24 00:00 10/11/24 00:40 10/11/24 00:55 Temperature 97.5 F L Pulse Rate 83 85 104 H Respiratory Rate 16 16 20 Blood Pressure 159/91 H Pulse Oximetry 95 95 99 Oxygen Delivery Room Air 10/11/24 05:32 10/11/24 05:45 10/11/24 08:00 Temperature 97.9 F Pulse Rate 80 90 80 Respiratory Rate 18 16 20 Blood Pressure 130/80 Pulse Oximetry 97 98 99 Oxygen Delivery Room Air Intake/Output Intake/Output: Intake & Output 10/08/24 10/09/24 10/10/24 10/11/24 23:59 23:59 23:59 23:59 Intake Total 2570 1115 Output Total 500 Balance 2570 615 Meds/Results Medications: Active Medications Generic Name Dose Route Start Last Admin Trade Name Freq PRN Reason Stop Dose Admin Acetaminophen 650 mg 10/09/24 23:58 10/10/24 22:21 Acetaminophen 325 Mg Tablet PO 650 mg Q4H PRN Administration Mild Pain (1-3) or Fever Albuterol 2.5 mg 10/10/24 00:01 Albuterol Sulfate Neb 2.5 Mg/3 Ml Inh INHALATION Q4HRT PRN Shortness Of Breath Albuterol 2 puff 10/10/24 01:28 Albuterol Sulfate (*Sp) Inhaler INHALATION Q6HRT PRN shortness of breath or wheezing Albuterol/Ipratropium 3 ml 10/10/24 00:30 10/11/24 05:32 Ipratropium 0.5 Mg/Albuterol Sulfate 2.5 Mg Ampul.Neb 3 Ml INHALATION 3 ml Q6HRT SUSAN Administration Amlodipine Besylate 10 mg 10/10/24 09:00 10/11/24 09:42 Amlodipine Besylate 5 Mg Tablet PO 10 mg DAILY SUSAN Administration Aripiprazole 2 mg 10/10/24 09:00 10/11/24 09:43 Aripiprazole 2 Mg Tablet PO 2 mg DAILY SUSAN Administration Azithromycin 500 mg 10/10/24 15:35 10/10/24 16:22 Azithromycin 250 Mg Tablet PO 10/13/24 15:01 500 mg 1500 SUSAN Administration Cyclobenzaprine HCl 10 mg 10/10/24 11:09 10/10/24 11:50 Cyclobenzaprine Hcl 10 Mg Tablet PO 10 mg Q8H PRN Administration Muscle Spasm/Pain Doxepin HCl 25 mg 10/10/24 21:00 10/10/24 21:34 Doxepin Hcl 25 Mg Capsule PO 25 mg HS SUSAN Administration Famotidine 20 mg 10/10/24 09:00 10/11/24 09:43 Famotidine 20 Mg Tablet PO 20 mg DAILY SUSAN Administration Ceftriaxone Sodium 1 gm in 50 mls @ 100 mls/hr 10/09/24 23:45 10/10/24 22:05 Rocephin 1 Gm/Ns 50 Ml IVPB Infused DAILY@2200 SUSAN Infusion Ibuprofen 600 mg 10/10/24 11:09 Ibuprofen 600 Mg Tablet PO Q6H PRN pain 1-10 Lisinopril 40 mg 10/10/24 09:00 10/11/24 09:44 Lisinopril 20 Mg Tablet PO 40 mg DAILY SUSAN Administration Lorazepam 2 mg 10/10/24 21:00 10/10/24 21:34 Lorazepam (*Crx) 1 Mg Tablet PO 2 mg QHS SUSAN Administration Nonformulary Drug ( 1 each 10/11/24 09:00 10/11/24 10:08 Buprenorphine/ XX 11/10/24 08:59 1 each Naloxone-8/2mg Q12HR SUSAN Administration Sublingual Film) Perflutren Lipid Microsphere 0 ml 10/10/24 13:23 Perflutren Lipid Microspheres 1.5 Ml Vial Diluted To 10 Ml Total Volume IV PUSH 10/13/24 13:23 ONCE PRN adequate visualization Protocol Prednisone 40 mg 10/11/24 08:00 10/11/24 09:44 Prednisone 20 Mg Tablet PO 40 mg DAILY@0800 SUSAN Administration Quetiapine Fumarate 200 mg 10/10/24 21:00 10/10/24 21:33 Quetiapine Fumarate 100 Mg Tablet PO 200 mg HS SUSAN Administration Sertraline HCl 100 mg 10/10/24 09:10 10/11/24 09:43 Sertraline Hcl 50 Mg Tablet PO 100 mg QAM SUSAN Administration Umeclidinium/Vilanterol 1 puff 10/10/24 09:00 10/11/24 09:44 Umeclidinium/Vilanterol 62.5-25 Mcg Ellipta INHALATION 1 puff DAILY SUSAN Administration Radiology Results: ITS Impressions Chest X-Ray 10/09/24 21:17 IMPRESSION: Right middle lobe infiltrate. Chest/Abdomen/Pelvis CT 10/09/24 23:14 IMPRESSION: Findings suggesting multifocal pneumonia with mediastinal and hilar lymphadenopathy. Additional findings within the ascending colon suggesting a focal enteritis. Labs Labs: Laboratory Results - last 24 hr 10/10/24 10/10/24 10/10/24 13:22 13:39 13:43 WBC 12.0 H RBC 4.22 Hgb 11.9 L Hct 37.0 MCV 87.7 MCH 28.2 MCHC 32.2 RDW 16.2 H Plt Count 455 H MPV 9.8 Immature Gran % (Auto) 1.0 H Neut % (Auto) 89.9 H Lymph % (Auto) 7.6 L [place] % (Auto) 1.3 L Eos % (Auto) 0.1 L Baso % (Auto) 0.1 Lymph # (Auto) 0.91 L [place] # (Auto) 0.16 Eos # (Auto) 0.01 L Baso # (Auto) 0.01 Abs Immat Gran (auto) 0.12 H Absolute Neuts (auto) 10.75 H Absolute Nucleated RBC 0.00 Nucleated RBC % 0.0 ESR Sodium 137 Potassium 3.9 Chloride 99 Carbon Dioxide 24 Anion Gap 14 H BUN 5 L Creatinine 0.85 Estim Creat Clear Calc 94 Estimated GFR > 60 Glucose 206 H Hemoglobin A1c Calculated Osmolality 287 Calcium 9.4 Phosphorus 2.6 Magnesium 2.0 C-Reactive Protein 7.1 H Albumin 3.4 Urine Color Light yellow Urine Appearance Clear Urine pH 6.0 Ur Specific [place] <= 1.005 L Urine Protein Negative Urine Glucose (UA) Negative Urine Ketones Negative Ur Blood (Man) Negative Urine Nitrate Negative Urine Bilirubin Negative Urine Urobilinogen 0.2 Leukocyte Esterase Rfl Negative Nasal MRSA (PCR) 0510/11/24 10/11/24 13:44 05:05 05:07 WBC 17.0 H RBC 3.93 L Hgb 11.0 L Hct 34.7 L MCV 88.3 MCH 28.0 MCHC 31.7 L RDW 16.1 H Plt Count 432 H MPV 9.4 Immature Gran % (Auto) 0.9 H Neut % (Auto) 87.1 H Lymph % (Auto) 8.3 L [place] % (Auto) 3.5 Eos % (Auto) 0.1 L Baso % (Auto) 0.1 Lymph # (Auto) 1.41 [place] # (Auto) 0.60 Eos # (Auto) 0.01 L Baso # (Auto) 0.02 Abs Immat Gran (auto) 0.16 H Absolute Neuts (auto) 14.75 H Absolute Nucleated RBC 0.00 Nucleated RBC % 0.0 ESR 50 H Sodium 136 Potassium 4.2 Chloride 101 Carbon Dioxide 26 Anion Gap 9 BUN 9 Creatinine 0.93 Estim Creat Clear Calc 87 Estimated GFR > 60 Glucose 171 H Hemoglobin A1c 5.9 H Calculated Osmolality 284 L Calcium 9.2 Phosphorus 3.2 Magnesium 2.0 C-Reactive Protein Albumin 3.1 L Urine Color Urine Appearance Urine pH Ur Specific [place] Urine Protein Urine Glucose (UA) Urine Ketones Ur Blood (Man) Urine Nitrate Urine Bilirubin Urine Urobilinogen Leukocyte Esterase Rfl Nasal MRSA (PCR) 10/11/24 08:36 WBC RBC Hgb Hct MCV MCH MCHC RDW Plt Count MPV Immature Gran % (Auto) Neut % (Auto) Lymph % (Auto) [place] % (Auto) Eos % (Auto) Baso % (Auto) Lymph # (Auto) [place] # (Auto) Eos # (Auto) Baso # (Auto) Abs Immat Gran (auto) Absolute Neuts (auto) Absolute Nucleated RBC Nucleated RBC % ESR Sodium Potassium Chloride Carbon Dioxide Anion Gap BUN Creatinine Estim Creat Clear Calc Estimated GFR Glucose Hemoglobin A1c Calculated Osmolality Calcium Phosphorus Magnesium C-Reactive Protein Albumin Urine Color Urine Appearance Urine pH Ur Specific [place] Urine Protein Urine Glucose (UA) Urine Ketones Ur Blood (Man) Urine Nitrate Urine Bilirubin Urine Urobilinogen Leukocyte Esterase Rfl Nasal MRSA (PCR) Not detected Quality VTE Prophylaxis VTE prophylaxis: pharmacologic ordered (Lovenox) -Patient's previous records reviewed on admission -ER notes reviewed in detail on admission -discussed all findings and current treatment plan with patient/Family/POA -Consultations reviewed for recommendations -Patient's disposition for safe discharge discussed with case therapist Dictation performed by ROB Fluency direct speech recognition software, theref ore hand paster variants and typographical errors may occur. Hospitalist MIPS Advance Care Plan I have confirmed that the patient's Advanced Care Plan is present, code status is documented, or surrogate decision maker is listed in patient medical record.: Yes Medication Reconciliation I have utilized all available resources to obtain, update and review the patients current medications (includes all prescriptions, OTC, herbals, cannabis, and nutritional supplements).: Yes The patient is not eligible for med reconciliation; the patient is in a emergent medical situation where delaying treatment would jeopardize the patients health.: No
[2024-10-11] MEDS: AZITHROMYCIN 250 MG TABLET 500 MG PO (15:46)
[2024-10-11] MEDS: QUEtiapine FUMARATE 100 MG TABLET 200 MG PO (19:19)
[2024-10-11] MEDS: LORazepam (*CRX) 1 MG TABLET 2 MG PO (19:19)
[2024-10-11] MEDS: DOXEPIN HCL 25 MG CAPSULE PO (19:43)
[2024-10-12] VITALS: BP 124/87; PULSE 88; RESP 18; TEMP 36.4; O2SAT 98
[2024-10-12 00:11] VITALS: O2SAT 97
[2024-10-12 00:25] VITALS: O2SAT 97
[2024-10-12] MEDS: IPRATROPIUM 0.5 MG/ALBUTEROL SULFATE 2.5 MG AMPUL.NEB 3 ML INHALATION (05:29)
[2024-10-12 05:30] VITALS: PULSE 75; RESP 16; O2SAT 97
[2024-10-12 05:37] LABS: Basophils Absolute Auto 0.03 K/mm3 (0.00-0.10); Basophils Percent Auto 0.2 % (0.0-1.0); Hematocrit 36.1 % (35.0-49.0); Hemoglobin 11.5 g/dL (12.0-15.0); Immature Granulocyte Absolute 0.14 K/mm3 (0.00-0.00); Immature Granulocyte Percent A 0.8 % (0.0-0.0); Lymphocytes Absolute Auto 4.03 K/mm3 (1.10-4.50); Lymphocytes Percent Auto 23.8 % (18.0-42.0); Mean Corpuscular HGB Conc 31.9 g/dL (32-36); Mean Corpuscular Hemoglobin 28.2 pg (27.0-31.0); Mean Corpuscular Volume 88.5 fL (78.0-102.0); Mean Platelet Volume 9.5 fl (9.2-11.8); Neutrophils Absolute Auto 11.04 K/mm3 (1.70-7.20); Neutrophils Percent Auto 65.2 % (50.0-70.0); Platelet Count Result 471 K/mm3 (150-420); Red Blood Count 4.08 M/mm3 (4.20-5.40); Red Cell Distribution Width 16.3 % (11.6-14.4); White Blood Count 16.9 K/mm3 (4.8-10.8)
[2024-10-12 05:43] VITALS: PULSE 78; RESP 16; O2SAT 100
[2024-10-12 06:28] LABS: Chloride 104 mmol/L (98-107); Potassium 4.1 mmol/L (3.4-5.0); Sodium 136 mmol/L (137-145)
[2024-10-12 06:29] LABS: Alanine Aminotransferase 32 U/L (6-35); Anion Gap 4 mmol/L (4-12); Aspartate Amino Transferase 34 U/L (14-36); Bilirubin,Total 0.2 mg/dL (0.2-1.3); Blood Urea Nitrogen 17 mg/dL (7-17); Calcium 8.6 mg/dL (8.4-10.2); Carbon Dioxide 28 mmol/L (22-30); Estimated CRCL calculation 126 ml/min; Estimated Glomerular Filt Rate > 60; Glucose 92 mg/dL (65-110); Magnesium 2.1 mg/dL (1.6-2.3); Osmolality Calculated 283 mOsm/kg (285-295); Phosphorus 4.2 mg/dL (2.5-4.5); Total Protein 7.2 g/dL (6.3-8.2)
[2024-10-12 06:30] LABS: Alkaline Phosphatase 79 U/L (38-126)
[2024-10-12 08:00] VITALS: BP 148/78; PULSE 82; RESP 14; TEMP 36.6; O2SAT 98
[2024-10-12] MEDS: UMECLIDINIUM/VILANTEROL 62.5-25 MCG ELLIPTA 1 PUFF INHALATION (09:18)
[2024-10-12] MEDS: NALOXONE XX (09:20)
[2024-10-12] MEDS: BUPRENORPHINE XX (09:20)
[2024-10-12] MEDS: [UNRECOGNIZED DRUG - OTHER] XX (09:20)
[2024-10-12] MEDS: SERTRALINE HCL 50 MG TABLET 100 MG PO (09:21)
[2024-10-12] MEDS: ARIPiprazole 2 MG TABLET PO (09:21)
[2024-10-12] MEDS: amLODIPine BESYLATE 5 MG TABLET 10 MG PO (09:21)
[2024-10-12] MEDS: FAMOTIDINE 20 MG TABLET PO (09:22)
[2024-10-12] MEDS: lisinopriL 20 MG TABLET 40 MG PO (09:22)
--- NOTE | 2024-10-12 10:33 | P.DS_ITS ---
DS: Admitting Diagnosis Discharge Date 10/12/2024 Admitting Diagnosis Bacterial Pneumonia DS: Discharge Diagnosis Discharge Diagnosis (1) Multifocal pneumonia: Code(s): J18.9 - Pneumonia, unspecified organism Status: Acute (2) Anxiety: Code(s): F41.9 - Anxiety disorder, unspecified Status: Acute (3) Insomnia: Code(s): G47.00 - Insomnia, unspecified Status: Acute (4) Enteritis: Code(s): K52.9 - Noninfective gastroenteritis and colitis, unspecified Status: Acute DS: Summary Hospital Course Reason for hospitalization: Pneumonia Hospital Course: Patient was a 44 year old female patient with a history of COPD, HTN, anxiety, depression is admitted to hospital with multifocal pneumonia and failure of outpatient treatment. Patient was seen in ER in August with progressive dyspnea on exertion getting worse over a couple of months. Patient treated back in August patient was treated with Levaquin for 7 days as well as albuterol inhaler and Medrol elaine. Patient returned to ER a month later in September and was again diagnosed with pneumonia and treated with doxycycline and prednisone. Patient reports that her symptoms got mildly better then returned each time. Imaging in the ED continued to show ground glass changes so she was admitted overnight for IV antibiotics for failure of outpatient treatment. Patient was started on IV Rocephin and azithromycin with Duo nebulizers during her admission stay she did not require any supplemental oxygen but did continue to have dyspnea with exertion but over the course of treatment improved and she felt back to baseline. she was initially treated with IV methylprednisone however I discontinued. Her MRSA was negative and blood cultures with no growth x 48hrs. she had mild elevated BNP likely due to infection but there had been concern for possible CHF and a an echo was ordered that showed normal LVEF of 65-70% with some mild pulmonary hypertension. patient did have bump in WBCs this also likely reactive to her administration IV steroids And was downtrending at time of discharge. patient remained afebrile during her hospitalization and reported feeling back to her baseline I did encourage her on smoking cessation of cigarettes and marijuana which can exacerbate her underlying COPD as well to provide time for her lungs to heal from the pneumonia. she was seen and assessed at time of discharge in no acute distress denied any chest pain, shortness a breath, nausea, vomiting, with great oral intake. she was discharged home on oral antibiotic therapy plans to follow up with her primary care physician patient acknowledged and agreed with discharge plan. Status at Discharge Functional status at discharge: independent ambulation Time Spent with Patient Time attestation: Total time spent providing and/or coordinating discharge services: Time spent: Greater than 30 minutes Exam Const: General: comfortable and no acute distress HENMT: Ears: TM's normal bilaterally Face/Nose/Sinus: Normal nares present Mouth: Yes moist mucous membranes Eyes: General: appearance normal, both eyes and all related structures Neck: Neck: supple Resp: Auscultation: diminished lung sounds bilateral in the lower lung kapadia Cardio: Rate: regular rate GI: Auscultation: normal bowel sounds Skin: General skin exam: normal color and no rashes or lesions noted Wounds: no wounds Neuro: General: gait normal Speech: normal speech Motor exam (neuro): 5/5 motor strength present throughout Sensory Exam: normal sensation Extrem: General: normal to inspection Psych: Mental Status: mental status grossly normal Affect: normal affect DS: Data Data Completed and Pending Labs on day of discharge: Labs from last 24 hours 10/12/24 10/12/24 10/12/24 05:04 05:04 05:04 WBC RBC Hgb Hct MCV MCH MCHC RDW Plt Count MPV Immature Gran % (Auto) Neut % (Auto) Lymph % (Auto) [place] % (Auto) Eos % (Auto) Baso % (Auto) Lymph # (Auto) [place] # (Auto) Eos # (Auto) Baso # (Auto) Abs Immat Gran (auto) Absolute Neuts (auto) Absolute Nucleated RBC Nucleated RBC % Sodium Potassium Chloride Carbon Dioxide Anion Gap BUN Creatinine Estim Creat Clear Calc Estimated GFR Glucose Calculated Osmolality Calcium Phosphorus Magnesium Total Bilirubin AST ALT Alkaline Phosphatase Cancelled Total Protein Cancelled 7.2 Albumin Cancelled 4.0 Procalcitonin Nasal MRSA (PCR) 10/12/24 10/12/24 10/12/24 05:04 05:04 05:04 WBC RBC Hgb Hct MCV MCH MCHC RDW Plt Count MPV Immature Gran % (Auto) Neut % (Auto) Lymph % (Auto) [place] % (Auto) Eos % (Auto) Baso % (Auto) Lymph # (Auto) [place] # (Auto) Eos # (Auto) Baso # (Auto) Abs Immat Gran (auto) Absolute Neuts (auto) Absolute Nucleated RBC Nucleated RBC % Sodium Potassium Chloride Carbon Dioxide Anion Gap BUN Creatinine Estim Creat Clear Calc Estimated GFR Glucose Calculated Osmolality Calcium Phosphorus Magnesium Total Bilirubin Cancelled AST Cancelled 34 ALT Cancelled 32 Alkaline Phosphatase 79 Total Protein Albumin Procalcitonin Nasal MRSA (PCR) 10/12/24 10/12/24 10/12/24 05:04 05:04 05:04 WBC RBC Hgb Hct MCV MCH MCHC RDW Plt Count MPV Immature Gran % (Auto) Neut % (Auto) Lymph % (Auto) [place] % (Auto) Eos % (Auto) Baso % (Auto) Lymph # (Auto) [place] # (Auto) Eos # (Auto) Baso # (Auto) Abs Immat Gran (auto) Absolute Neuts (auto) Absolute Nucleated RBC Nucleated RBC % Sodium Potassium Chloride Carbon Dioxide Anion Gap BUN Creatinine Estim Creat Clear Calc Estimated GFR Glucose Cancelled Calculated Osmolality Cancelled 283 L Calcium Cancelled 8.6 Phosphorus 4.2 Magnesium 2.1 Total Bilirubin 0.2 AST ALT Alkaline Phosphatase Total Protein Albumin Procalcitonin Nasal MRSA (PCR) 10/12/24 10/12/24 10/12/24 05:04 05:04 05:04 WBC RBC Hgb Hct MCV MCH MCHC RDW Plt Count MPV Immature Gran % (Auto) Neut % (Auto) Lymph % (Auto) [place] % (Auto) Eos % (Auto) Baso % (Auto) Lymph # (Auto) [place] # (Auto) Eos # (Auto) Baso # (Auto) Abs Immat Gran (auto) Absolute Neuts (auto) Absolute Nucleated RBC Nucleated RBC % Sodium Potassium Chloride Carbon Dioxide Anion Gap BUN Creatinine Cancelled Estim Creat Clear Calc Cancelled 126 Estimated GFR Cancelled > 60 Glucose 92 Calculated Osmolality Calcium Phosphorus Magnesium Total Bilirubin AST ALT Alkaline Phosphatase Total Protein Albumin Procalcitonin Nasal MRSA (PCR) 10/12/24 10/12/24 10/12/24 05:04 05:04 05:04 WBC RBC Hgb Hct MCV MCH MCHC RDW Plt Count MPV Immature Gran % (Auto) Neut % (Auto) Lymph % (Auto) [place] % (Auto) Eos % (Auto) Baso % (Auto) Lymph # (Auto) [place] # (Auto) Eos # (Auto) Baso # (Auto) Abs Immat Gran (auto) Absolute Neuts (auto) Absolute Nucleated RBC Nucleated RBC % Sodium Potassium Chloride Carbon Dioxide Cancelled Anion Gap Cancelled 4 BUN Cancelled 17 Creatinine 0.62 L Estim Creat Clear Calc Estimated GFR Glucose Calculated Osmolality Calcium Phosphorus Magnesium Total Bilirubin AST ALT Alkaline Phosphatase Total Protein Albumin Procalcitonin Nasal MRSA (PCR) 10/12/24 10/12/24 10/12/24 05:04 05:04 05:04 WBC RBC Hgb Hct MCV MCH MCHC RDW Plt Count MPV Immature Gran % (Auto) Neut % (Auto) Lymph % (Auto) [place] % (Auto) Eos % (Auto) Baso % (Auto) Lymph # (Auto) [place] # (Auto) Eos # (Auto) Baso # (Auto) Abs Immat Gran (auto) Absolute Neuts (auto) Absolute Nucleated RBC Nucleated RBC % Sodium Cancelled Potassium Cancelled 4.1 Chloride Cancelled 104 Carbon Dioxide 28 Anion Gap BUN Creatinine Estim Creat Clear Calc Estimated GFR Glucose Calculated Osmolality Calcium Phosphorus Magnesium Total Bilirubin AST ALT Alkaline Phosphatase Total Protein Albumin Procalcitonin Nasal MRSA (PCR) 10/12/24 10/11/24 10/10/24 05:04 08:36 13:43 WBC 16.9 H RBC 4.08 L Hgb 11.5 L Hct 36.1 MCV 88.5 MCH 28.2 MCHC 31.9 L RDW 16.3 H Plt Count 471 H MPV 9.5 Immature Gran % (Auto) 0.8 H Neut % (Auto) 65.2 Lymph % (Auto) 23.8 [place] % (Auto) 10.0 Eos % (Auto) 0.0 L Baso % (Auto) 0.2 Lymph # (Auto) 4.03 [place] # (Auto) 1.70 H Eos # (Auto) 0.00 L Baso # (Auto) 0.03 Abs Immat Gran (auto) 0.14 H Absolute Neuts (auto) 11.04 H Absolute Nucleated RBC 0.00 Nucleated RBC % 0.0 Sodium 136 L Potassium Chloride Carbon Dioxide Anion Gap BUN Creatinine Estim Creat Clear Calc Estimated GFR Glucose Calculated Osmolality Calcium Phosphorus Magnesium Total Bilirubin AST ALT Alkaline Phosphatase Total Protein Albumin Procalcitonin 0.0 Nasal MRSA (PCR) Not detected Preliminary micro results at discharge 10/09/24 21:24 Blood Culture - Preliminary Blood 10/09/24 21:25 Blood Culture - Preliminary Blood Imaging Radiologist's impression: Radiology Results: ITS Impressions Chest X-Ray 10/09/24 21:17 IMPRESSION: Right middle lobe infiltrate. Chest/Abdomen/Pelvis CT 10/09/24 23:14 IMPRESSION: Findings suggesting multifocal pneumonia with mediastinal and hilar lymphadenopathy. Additional findings within the ascending colon suggesting a focal enteritis. Discharge Plan Discharge Attending physician on discharge: Steve Hinds Consulting providers: Aissatou Martins Discharging Clinician: Aissatou Martins Anticipated Discharge Date/Time: 10/12/24 10:14 Patient Disposition: Home Activity: may shower and as tolerated Diet: heart healthy and low sodium Discharge Instructions: Bacterial pneumonia: * prescribed antibiotic therapy please take as directed and complete even if feeling better * continue to use your incentive spirometer * May use OTC Mucinex to help with secretions and cough * may use acetaminophen mild fever and mild pain * I encouraged smoking cessation mild pulmonary edema * recommend low-sodium diet * blood pressure control How can you care for yourself at home? ? Keep track of any new symptoms or changes in your symptoms. ? Rest until you feel better. ? Be safe with medicines. Take your medicines exactly as prescribed. Call your doctor if you think you are having a problem with your medicine. ? Do not drive after taking a prescription pain medicine. ? Ensure to follow-up with primary care physician as indicated and provide updated medication list provided to you at discharge. When should you call for help? Call 911 anytime you think you may need emergency care. For example, call if: ? You passed out (lost consciousness). Call your doctor now or seek immediate medical care if: ? You have new symptoms like fever, difficulty breathing, Chest pain, vomiting, or rash. ? You have new or different pain. ? You are confused and are having trouble thinking clearly. ? Your symptoms are getting worse. Watch closely for changes in your health, and be sure to contact your doctor if: ? You do not get better as expected. Patient Instructions: Antibiotic Form, Pulmonary Arterial Hypertension (DC), Bacterial Pneumonia (DC) Patient Language: Lib[place] Stand Alone Forms: General Discharge Information Follow-up/Referrals: German Uriarte MD [Physician] - 2 weeks (New patient appt.) Discharge Medications: New cyclobenzaprine 10 mg Tablet 10 mg PO Q8H PRN (Reason: Muscle Spasm/Pain) Qty: 30 0RF azithromycin [Zithromax] 250 mg Tablet 500 mg PO 1500 Qty: 6 0RF amoxicillin-pot clavulanate 875-125 mg tablet 1 tablet PO Q12H Qty: 14 0RF sertraline [Zoloft] 50 mg Tablet 100 mg PO QAM Qty: 60 0RF Continued quetiapine 300 mg tablet 300 mg PO HS albuterol sulfate [Ventolin HFA] 90 mcg/actuation HFA aerosol inhaler 2 inh inhalation QID PRN (Reason: shortness of breath or wheezing) Qty: 6.7 0RF doxepin 10 mg capsule 20 mg PO .COMPLEX Rx Instructions: 20 mg orally hs; famotidine 20 mg tablet 20 mg PO .COMPLEX Rx Instructions: 20 mg orally daily PRN; amlodipine 10 mg tablet 10 mg PO .COMPLEX Rx Instructions: 10 mg orally am; aripiprazole 2 mg tablet 2 mg PO .COMPLEX Rx Instructions: 2 mg orally am; lisinopril 40 mg tablet 40 mg PO .COMPLEX Rx Instructions: 40 mg orally Daily; lorazepam 1 mg tablet 2 mg PO .COMPLEX Rx Instructions: 2 mg orally HS; Anoro Ellipta 62.5-25 mcg/actuation blister with device 1 inh INHALATION .COMPLEX PRN (Reason: sob) Rx Instructions: 1 inh inhaled BID PRN; Discontinued fluoxetine 20 mg capsule 20 mg PO DAILY Date of admission: 10/09/24 23:58 Primary Care Provider: LorieBrina Admitting Provider: Steve Hinds Attending physician on admission: Steve Hinds Condition: Stable Quality VTE Prophylaxis VTE prophylaxis: pharmacologic ordered (Lovenox) -Patient's previous records reviewed on admission -ER notes reviewed in detail on admission -discussed all findings and current treatment plan with patient/Family/POA -Consultations reviewed for recommendations -Patient's disposition for safe discharge discussed with case monitor Dictation performed by [employer] direct speech recognition software, therefore human resources compliance manager variants and typographical errors may occur. Hospitalist MIPS Heart Failure (Exclusion) Patient has history of Heart Transplant or Left Ventricular Assistive Device?: No IF YES, STOP HERE Heart Failure (Qualifier) Patient has current or prior documentation of LVEF less than or equal to 40%, or mod/servere depressed LVSF?: No IF NO, STOP HERE
--- NOTE | 2024-10-12 11:43 | PC.NURSE ---
Pt discharged home with family care. VSS. Discharge teaching done regarding medications, S&S to watch for and follow up appointment. Pt verbalizes understanding of instructions.
[2024-10-13 15:43] LABS: Pneumococcal Antigen Urine NOT DETECTED
[2024-10-13 20:09] LABS: Legionella pneumophila Ag Ur NOT DETECTED
[2024-10-14 03:57] LABS: Chlamydia pneumoniae Source NOSE; Chlamydia pneumoniae by PCR NOT DETECTED
--- NOTE | 2024-10-16 12:52 | PC.NURSE ---
Discharge call back made. Patient understood all instructions. Made an appointment with parlor chaperone instead of PCP. Encouraged her to see PCP.
== END 2024-10-12 11:30 | disposition home or self-care (01) ==
LOC: CHSED 23:58 → CHS2ND 10-10 07:30
PROVIDERS: Nurse Practitioner; Nurse Practitioner Family; Admitting Provider Internal Medicine; Emergency Provider Emergency Medicine; PCP Nurse Practitioner Family; Visit Provider Internal Medicine
DX: J18.9 Pneumonia, unspecified organism (principal); J44.0 Chronic obstructive pulmonary disease with (acute) lower respiratory infection; K52.9 Noninfective gastroenteritis and colitis, unspecified; F41.9 Anxiety disorder, unspecified; G47.00 Insomnia, unspecified; I10 Essential (primary) hypertension; F32.A Depression, unspecified; F17.210 Nicotine dependence, cigarettes, uncomplicated; Z20.822 Contact with and (suspected) exposure to COVID-19; Z79.51 Long term (current) use of inhaled steroids; Z79.899 Other long term (current) drug therapy
CPT/HCPCS: 36415; 36600; 71046; 71260; 74177; 80053; 80069; 81003; 82805; 83036; 83690; 83735; 83880; 84100; 84145; 84484; 85025; 85652; 86140; 86738; 87040; 87449; 87486; 87633; 87636; 87641; 87899; 93005; 93306; 94640; 96365; 96366; 96375; 96376; 99199; 99285; A9270; G0378; J0456; J0696; J2060; J2919; J7512; Q9967